=== PATIENT | female | born 1945 | race Caucasian/White ===

== ENCOUNTER 2018-06-05 13:14 | Outpatient (REF) | payer OTHER, SELFPAY ==
[2018-06-05 21:44] LABS: Hemoglobin A1C 5.7 % (4.5-6.2)
[2018-06-05 21:55] LABS: ALT 26 U/L (12-78); AST 19 U/L (15-37); Alkaline Phosphatase 67 U/L (46-116); Anion Gap 9.9 mmol/L (3-11); BUN 24 mg/dL (7-18); Bilirubin, Total 0.4 mg/dL (0.2-1.0); CO2 27.1 mmol/L (21.0-32.0); CREATININE 0.65 mg/dL (0.55-1.02); Calcium 9.6 mg/dL (8.5-10.1); Chloride 104 mmol/L (98-107); Glucose 103 mg/dL (70-100); Potassium 4.1 mmol/L (3.5-5.1); Sodium 141 mmol/L (136-145); Total Protein 7.2 g/dL (6.4-8.2)
[2018-06-09 10:25] LABS: Hepatitis C Ab w Rflx HCV PCR Negative (NEGAT)
== END 2018-06-05 13:34 ==
LOC: NCHCN 13:14
PROVIDERS: PCP Nurse Practitioner Family; Visit Provider Nurse Practitioner Family
DX: R73.01 Impaired fasting glucose (principal); E78.5 Hyperlipidemia, unspecified; N95.2 Postmenopausal atrophic vaginitis; M54.5 Low back pain; Z11.59 Encounter for screening for other viral diseases
CPT/HCPCS: 80053; 86803; 83036

== ENCOUNTER 2018-08-12 01:34 | Outpatient (CLI) | payer OTHER, SELFPAY ==
--- NOTE | 2018-08-12 13:30 | DI.RAD_ITS ---
SYMPTOMS/DIAGNOSIS: AGE-RELATED POSTMENOPAUSAL STATUS, Z78.0 DEXA SCAN: The scanogram is unremarkable. For the right forearm, a T score of -1.9 and a Z score of -0.2 indicate osteoporosis and a high fracture risk. For the left hip, a T score of 0 and a Z score of 1.6 are within the normal range. For the lumbar spine, a T score of 0.1 and a Z score of 2.2 are also within the normal range.
--- NOTE | 2018-08-12 14:20 | DI.MAMMO_ITS ---
SYMPTOMS/DIAGNOSIS: SCREENING, Z12.39 MAMMOGRAM: Mammograms were interpreted according to the usual protocol including computer analysis with CAD system, tomosynthesis and C view imaging. The breast tissue is moderately radiodense which somewhat limits the sensitivity of the study. There is no dominant mass. There are no suspicious calcifications and there has been no significant interval change when compared with prior images. SUMMARY: No evidence of malignancy, Category I, yearly screening mammography is recommended. Breast density Category C. MQSA ASSESSMENT OF FINDINGS: Negative. Category 1. Patient will receive a letter notifying them of these results. Bi-RADS category C. The breasts are heterogeneously dense, which may obscure small masses.
== END 2018-08-12 01:54 ==
PROVIDERS: PCP Nurse Practitioner Family; Visit Provider Nurse Practitioner Family
DX: M81.0 Age-related osteoporosis without current pathological fracture (principal); Z78.0 Asymptomatic menopausal state; Z12.31 Encounter for screening mammogram for malignant neoplasm of breast
CPT/HCPCS: 77063; 77067; 77080

== ENCOUNTER 2019-06-28 01:13 | Outpatient (CLI) | payer OTHER, SELFPAY ==
[2019-06-28 10:44] LABS: ALT 23 U/L (14-59); AST 18 U/L (15-37); Alkaline Phosphatase 77 U/L (46-116); Anion Gap 9.6 mmol/L (3-11); BUN 20 mg/dL (7-18); Bilirubin, Total 0.6 mg/dL (0.2-1.0); CO2 26.4 mmol/L (21.0-32.0); Chloride 102 mmol/L (98-107); Glucose 114 mg/dL (74-106); Potassium 4.5 mmol/L (3.5-5.1); Sodium 138 mmol/L (136-145)
[2019-06-28 11:32] LABS: Hemoglobin A1C 5.5 % (3.8-5.6)
== END 2019-06-28 01:33 ==
PROVIDERS: PCP Nurse Practitioner Family; Visit Provider Nurse Practitioner Family
DX: I10 Essential (primary) hypertension (principal); R73.09 Other abnormal glucose
CPT/HCPCS: 36415; 80053; 83036

== ENCOUNTER 2020-01-25 11:55 | Outpatient (REF) | payer OTHER, SELFPAY ==
[2020-01-25 22:05] LABS: Anion Gap 7.3 mmol/L (3-11); BUN 15 mg/dL (7-18); CO2 28.7 mmol/L (21.0-32.0); CREATININE 0.66 mg/dL (0.55-1.02); Calcium 9.5 mg/dL (8.5-10.1); Chloride 103 mmol/L (98-107); Glucose 103 mg/dL (74-106); Potassium 4.7 mmol/L (3.5-5.1); Sodium 139 mmol/L (136-145)
== END 2020-01-25 12:15 ==
LOC: NCHCN 11:55
PROVIDERS: PCP Nurse Practitioner Family; Visit Provider Nurse Practitioner Family
DX: I10 Essential (primary) hypertension (principal)
CPT/HCPCS: 80048

== ENCOUNTER 2020-06-21 00:59 | Outpatient (CLI) | payer OTHER, SELFPAY ==
--- NOTE | 2020-06-21 12:50 | DI.MAMMO_ITS ---
EXAM: MAMMO SCREENING CLINICAL HISTORY: SCREENING,Z12.39 TECHNIQUE: Bilateral full field digital CC and MLO mammographic images were obtained with 3D tomosyn thesis and utilizing computer aided detection (CAD). COMPARISON: Available for comparison. FINDINGS: Masses/Architectural Distortion: Area of asymmetric density in the central left breast seen on both t he CC and the MLO view. Microcalcifications: No suspicious pleomorphic-type are seen. Skin Thickening/Nipple Retraction: None. IMPRESSION: 1. Small asymmetric density in the posterior central left breast. 2. Spot compression views and a left breast ultrasound are requested for further evaluation. BI-RADS Category 0 - Assessment Incomplete: Need additional imaging evaluation Breast Density - Category B - Scattered areas of fibroglandular density Breast density category C or D implies that the patient has dense breast tissue. Dense breast tissue is very common and is not abnormal but dense breast tissue can make it harder to find cancer on a ma mmogram. Also, dense breast tissue may increase their breast cancer risk. This information about the result of the mammogram report was provided to the patient to raise their awareness. Use this report when you speak with the patient about their risks for breast cancer, which includes their family hist ory. At that time, you may recommend for more screening tests (Ultrasound or MRI) as they might be us eful based on their risk. A negative radiographic report should not delay biopsy if a dominant or clinically suspicious mass is present. Up to ten percent of cancers are not identified on mammography. A negative report may reinforce clinical impression. Adenosis and dense breasts may obscure an underlying neoplasm. False positive reports average 6 to 10%. Patient will receive a letter notifying them of these results. -- EXAM: MAMMO SCREENING CLINICAL HISTORY: SCREENING,Z12.39 TECHNIQUE: Bilateral full field digital CC and MLO mammographic images were obtained with 3D tomosyn thesis and utilizing computer aided detection (CAD). COMPARISON: Available for comparison. FINDINGS: Masses/Architectural Distortion: Area of asymmetric density in the central left breast seen on both t he CC and the MLO view. Microcalcifications: No suspicious pleomorphic-type are seen. Skin Thickening/Nipple Retraction: None.
== END 2020-06-21 01:00 ==
LOC: DI 01:00
PROVIDERS: PCP Nurse Practitioner Family; Visit Provider Nurse Practitioner Family
DX: Z12.31 Encounter for screening mammogram for malignant neoplasm of breast (principal)
CPT/HCPCS: 77063; 77067

== ENCOUNTER 2020-06-27 00:23 | Outpatient (CLI) | payer OTHER, SELFPAY ==
--- NOTE | 2020-06-27 | DI.MAMMO_ITS ---
EXAM: MG MAMMO SCREEN CALL BACK UNI CLINICAL HISTORY: F/U MAMMO, AREA OF ASYMMETRIC DENSITY CENTRAL LT BREAST. TECHNIQUE: Spot-compression CC and MLO 3D views of the left breast were performed, this pursuant of findings on recent screening mammogram of June 21, 2020 COMPARISON: Prior mammograms dating back to 2011, the most recent being June 21, 2020. FINDINGS: Additional spot compression views are less concerning for significant nodule. Left breast ultrasound performed following this mammogram today did not reveal significant focal ultr asound findings. IMPRESSION: No radiographic evidence of malignancy in the left breast. Appropriate follow-up is repeat left breast mammogram in 6 months. BI-RADS Category 3 - 6 month - Probably Benign Finding: Recommend follow-up mammography in 6 months Breast Density - Category B - Scattered areas of fibroglandular density Breast density Category C or D implies that the patient has dense breast tissue. Dense breast tissue can make it harder to find cancer on a mammogram. Dense breast tissue is also associated with an incr eased risk of breast cancer. This information about the result of the mammogram report was provided to the patient to raise their awareness. Use this report when you speak with the patient about their risks for breast cancer, which includes their family history. At that time, you may recommend additional screening tests (Ultrasoun d or MRI) as these tests may add significant information. A negative radiographic report should not delay biopsy if a dominant or clinically suspicious mass is present. Up to ten percent of cancers are not identified on mammography. A negative report may reinforce clinical impression. Adenosis and dense breasts may obscure an underlying neoplasm. False positive reports average 6 to 10%. Patient will receive a letter notifying them of these results.
== END 2020-06-27 00:24 ==
LOC: DI 00:24
PROVIDERS: PCP Nurse Practitioner Family; Visit Provider Nurse Practitioner Family
DX: R92.8 Other abnormal and inconclusive findings on diagnostic imaging of breast (principal)
CPT/HCPCS: 76642; 77063; 77067

== ENCOUNTER 2020-07-05 13:04 | Outpatient (REF) | payer OTHER, SELFPAY ==
[2020-07-05 19:56] LABS: ALT 28 U/L (14-59); AST 15 U/L (15-37); Albumin 4.1 g/dL (3.4-5.0); Alkaline Phosphatase 73 U/L (46-116); Anion Gap 7.7 mmol/L (3-11); BUN 19 mg/dL (7-18); Bilirubin, Total 0.4 mg/dL (0.2-1.0); CO2 27.3 mmol/L (21.0-32.0); CREATININE 0.7 mg/dL (0.55-1.02); Calcium 9.5 mg/dL (8.5-10.1); Chloride 105 mmol/L (98-107); Glucose 105 mg/dL (74-106); Potassium 4.4 mmol/L (3.5-5.1); Sodium 140 mmol/L (136-145); Total Protein 7.2 g/dL (6.4-8.2)
[2020-07-05 19:59] LABS: Hemoglobin A1C 5.4 % (<5.7)
[2020-07-07 04:41] LABS: Vitamin D 25 Total 37.1 ng/ml (30-100)
== END 2020-07-05 13:05 | disposition home or self-care (01) ==
LOC: NCHCN 13:04
PROVIDERS: PCP Nurse Practitioner Family; Visit Provider Nurse Practitioner Family
DX: I10 Essential (primary) hypertension (principal); M81.0 Age-related osteoporosis without current pathological fracture; E78.5 Hyperlipidemia, unspecified; R73.09 Other abnormal glucose
CPT/HCPCS: 80053; 82306; 83036

== ENCOUNTER 2020-08-01 11:53 | Outpatient (CLI) | payer OTHER, SELFPAY ==
--- NOTE | 2020-07-18 12:30 | DI.RAD_ITS ---
EXAM: XR KNEE LT 3V AP,LAT,KING CLINICAL HISTORY: BILAT KNEE PAIN, M25.561. TECHNIQUE: 2D digital imaging was performed. COMPARISON: CR XR KNEE RT 3V AP,LAT,KING from 07/18/2020 FINDINGS: BONES: No acute fracture is present. No bony destructive lesion is seen. JOINTS: There is moderate to severe narrowing of the medial femoral tibial joint space. There is spu rring from the medial femoral condyle and medial tibial plateau as well as sclerosis. There is mild varus angulation at the knee. There is mild spurring at the patellofemoral joint. No joint effusion is seen. SOFT TISSUE: Normal. IMPRESSION: Moderate to severe degenerative changes of the medial femoral tibial joint. Mild patellofemoral dege nerative changes. DATA REPOSITORY: RADIATION DOSE DELIVERED:
--- NOTE | 2020-07-18 12:40 | DI.RAD_ITS ---
EXAM: XR KNEE RT 3V AP,LAT,KING CLINICAL HISTORY: BILAT KNEE PAIN, M25.561. TECHNIQUE: 2D digital imaging was performed. COMPARISON: No exams were available for comparison FINDINGS: BONES: No acute fracture is present. No bony destructive lesion is seen. JOINTS: There is severe narrowing of the medial femoral tibial joint. There is spurring from the med ial femoral condyle and medial tibial plateau. There is varus angulation. There is minimal spurring at the articular aspect of the patella. No joint effusion is seen. SOFT TISSUE: Normal. IMPRESSION: Severe degenerative changes of the medial femoral tibial joint. Mild degenerative changes of the pat ellofemoral joint. DATA REPOSITORY: RADIATION DOSE DELIVERED:
== END 2020-08-01 12:13 ==
PROVIDERS: PCP Nurse Practitioner Family; Visit Provider Nurse Practitioner Family
DX: M17.0 Bilateral primary osteoarthritis of knee (principal)
CPT/HCPCS: 73562

== ENCOUNTER → 2020-08-26 08:27 | Outpatient (BNVA) | payer OTHER, SELFPAY | PROVIDERS: PCP Nurse Practitioner Family; Referring Provider Nurse Practitioner Family; Visit Provider Student in an Organized Health Care Education/Training Program | DX: M17.12 Unilateral primary osteoarthritis, left knee (principal); M17.11 Unilateral primary osteoarthritis, right knee | CPT/HCPCS: 99203 ==

== ENCOUNTER 2021-02-13 17:46 | Outpatient (REF) | payer OTHER, SELFPAY ==
[2021-02-15 12:59] LABS: COVID-19 RT-PCR UVMMC Result Negative (Negative)
== END 2021-02-13 17:47 | disposition home or self-care (01) ==
LOC: NCHCN 17:46
PROVIDERS: PCP Nurse Practitioner Family; Visit Provider Nurse Practitioner Family
DX: Z20.822 Contact with and (suspected) exposure to COVID-19 (principal); J11.1 Influenza due to unidentified influenza virus with other respiratory manifestations
CPT/HCPCS: U0003

== ENCOUNTER 2021-02-14 01:03 | Outpatient (CLI) | payer OTHER, SELFPAY ==
--- NOTE | 2021-02-14 | DI.US_ITS ---
Exam(s) MG MAMMO DIAGNOSTIC UNI US BREAST LT LIMITED EXAM: MG MAMMO DIAGNOSTIC UNI and U/S breast LT limited CLINICAL HISTORY: DIAGNOSTIC, 6 MO F/U, F/U ABNL MAMMO. TECHNIQUE: Craniocaudal and mediolateral oblique Full Field Digital Mammography views of the left br east with Computer Aided Diagnosis followed by Tomosynthesis and left breast ultrasound. COMPARISON: Priors available for comparison. FINDINGS: Mammography/Tomosynthesis: Masses/Architectural Distortion: The asymmetric breast tissue in the lower central left breast is unc hanged. Microcalcifictions: No suspicious pleomorphic-type are seen. Skin Thickening/Nipple Retraction: None. Left breast US: The lower inner and lower outer quadrants of the left breast were evaluated sonograph ically. Echotexture: Normal appearance of the glandular tissue. Shadowing: No suspicious foci. Cyst: None. Solid lesions: None seen. Ductal dilation: None. IMPRESSION: 1. No evidence of malignancy is noted. 2. A six-month follow-up left mammogram and ultrasound is recommended for re-evaluation. 3. Findings were discussed with the patient on the date of the examination. BI-RADS Category 3 - 6 month - Probably Benign Finding: Recommend follow-up imaging in 6 months Breast Density - Category B - Scattered areas of fibroglandular density Breast density category C or D implies that the patient has dense breast tissue. Dense breast tissue is very common and is not abnormal but dense breast tissue can make it harder to find cancer on a ma mmogram. Also, dense breast tissue may increase their breast cancer risk. This information about the result of the mammogram report was provided to the patient to raise their awareness. Use this report when you speak with the patient about their risks for breast cancer, which includes their family hist ory. At that time, you may recommend for more screening tests (Ultrasound or MRI) as they might be us eful based on their risk. A negative radiographic report should not delay biopsy if a dominant or clinically suspicious mass is present. Up to ten percent of cancers are not identified on mammography. A negative report may reinforce clinical impression. Adenosis and dense breasts may obscure an underlying neoplasm. False positive reports average 6 to 10%. Patient will receive a letter notifying them of these results.
== END 2021-02-14 01:23 ==
PROVIDERS: PCP Nurse Practitioner Family; Visit Provider Nurse Practitioner Family
DX: R92.8 Other abnormal and inconclusive findings on diagnostic imaging of breast (principal)
CPT/HCPCS: 76642; 77061; 77065; G0279

== ENCOUNTER → 2021-07-21 09:24 | Outpatient (BNVA) | payer MEDICARE, SELFPAY | PROVIDERS: PCP Nurse Practitioner Family; Referring Provider Nurse Practitioner Family | DX: M17.11 Unilateral primary osteoarthritis, right knee (principal) | CPT/HCPCS: 20610; J1040 ==

== ENCOUNTER 2021-08-18 00:26 | Outpatient (CLI) | payer MEDICARE, SELFPAY ==
--- NOTE | 2021-08-18 | DI.US_ITS ---
Exam(s) US BREAST LT COMPLETE EXAM: US BREAST LT COMPLETE CLINICAL HISTORY: F/U ABNL FINDINGS ON MAMMO, 6 MO F/U LT BREAST, R92.8. TECHNIQUE: Complete ultrasound of the LEFT breast was performed including all 4 quadrants, the retro areolar region, and the ipsilateral axilla. COMPARISON: Prior mammograms were reviewed. Prior limited ultrasound examinations were reviewed. FINDINGS: There is no evidence of solid or significant cystic lesions in all 4 quadrants of the left breast. No significant ultrasound findings in the retroareolar region. Ultrasound the left axilla revealed no significant adenopathy. IMPRESSION: Negative complete left breast ultrasound. Appropriate follow-up is to keep this patient yearly mammogram schedule, with earlier imaging if a se lf detected breast changes noted.. BI-RADS Category 2 - Benign Findings Breast Density - Category B - Scattered areas of fibroglandular density Breast density Category C or D implies that the patient has dense breast tissue. Dense breast tissue can make it harder to find cancer on a mammogram. Dense breast tissue is also associated with an incr eased risk of breast cancer. This information about the result of the mammogram report was provided to the patient to raise their awareness. Use this report when you speak with the patient about their risks for breast cancer, which includes their family history. At that time, you may recommend additional screening tests (Ultrasoun d or MRI) as these tests may add significant information. A negative radiographic report should not delay biopsy if a dominant or clinically suspicious mass is present. Up to ten percent of cancers are not identified on mammography. A negative report may reinforce clinical impression. Adenosis and dense breasts may obscure an underlying neoplasm. False positive reports average 6 to 10%. Patient will receive a letter notifying them of these results.
--- NOTE | 2021-08-18 | DI.MAMMO_ITS ---
Exam(s) MAMMO DIAGNOSTIC BI EXAM: MAMMO DIAGNOSTIC BI CLINICAL HISTORY: DIAGNOSTIC, 6 MO F/U, F/U TO ABNL MAMMO LT, DUE FOR BILATERAL, R92.8. TECHNIQUE: Unilateral spot mammographic images were obtained with 3D tomosynthesis technique and uti lizing computer aided detection (CAD). COMPARISON: Prior mammograms were reviewed, the most recent being February 2021. Prior ultrasound was also reviewed FINDINGS: There has been no significant change in the appearance and distribution of the fibroglandular tissue. There are no new spiculated masses. Scattered benign microcalcifications are again noted. A small m icrocalcification in the central left breast is noted which is slightly increased prior studies but p resently benign appearance. No new significant architectural distortion or skin thickening-traction. IMPRESSION: Benign findings. No radiographic evidence of malignancy. This patient also underwent left breast ultrasound today. Please see that separate report The patient was informed of the findings and follow-up recommendations prior to leaving the [facility] t today. BI-RADS Category 2 - Benign Findings Breast Density - Category B - Scattered areas of fibroglandular density Breast density Category C or D implies that the patient has dense breast tissue. Dense breast tissue can make it harder to find cancer on a mammogram. Dense breast tissue is also associated with an incr eased risk of breast cancer. This information about the result of the mammogram report was provided to the patient to raise their awareness. Use this report when you speak with the patient about their risks for breast cancer, which includes their family history. At that time, you may recommend additional screening tests (Ultrasoun d or MRI) as these tests may add significant information. A negative radiographic report should not delay biopsy if a dominant or clinically suspicious mass is present. Up to ten percent of cancers are not identified on mammography. A negative report may reinforce clinical impression. Adenosis and dense breasts may obscure an underlying neoplasm. False positive reports average 6 to 10%. Patient will receive a letter notifying them of these results.
== END 2021-08-18 00:46 ==
PROVIDERS: PCP Nurse Practitioner Family; Visit Provider Nurse Practitioner Family
DX: R92.8 Other abnormal and inconclusive findings on diagnostic imaging of breast (principal); N60.82 Other benign mammary dysplasias of left breast
CPT/HCPCS: 76642; 77062; 77066; G0279

== ENCOUNTER → 2021-10-05 02:12 | Outpatient (CLI) | payer MEDICARE, SELFPAY ==
--- NOTE | 2021-10-05 14:30 | DI.DEXA_ITS ---
Exam(s) XR DEXA BONE DENSITY W/WO GORDY EXAM: XR DEXA BONE DENSITY W/WO GORDY CLINICAL HISTORY: ASYMPTOMATIC POSTMENOPAUSAL STATUS, Z78.0 TECHNIQUE: COMPARISON: Comparison is 08/12/2018. FINDINGS: Lateral Spine Image: Unremarkable. No compression deformities identified. Left hip: Total T-Score: -0.2. This compares to 0.0 on the prior examination. This is a loss of 2.6 percent in the bone mineral density. Total Z-Score: 1.5 T- and Z-scores: Within normal limits. Lumbar Spine: Total T-Score: 0.3. This compares to 0.1 on the prior examination. This is a 2 percent increase in t he bone mineral density. Total Z-Score: 2.6 T- and Z-scores: Within normal limits. IMPRESSION: No evidence of osteoporosis.
== END ==
PROVIDERS: PCP Nurse Practitioner Family; Visit Provider Nurse Practitioner Family
DX: Z13.820 Encounter for screening for osteoporosis (principal); Z78.0 Asymptomatic menopausal state
CPT/HCPCS: 77080

== ENCOUNTER 2021-10-10 16:07 | Outpatient (REF) | payer MEDICARE, SELFPAY ==
[2021-10-10 15:16] LABS: CREATININE 0.7 mg/dL (0.55-1.02)
== END 2021-10-10 16:08 | disposition home or self-care (01) ==
LOC: NCHCN 16:07
PROVIDERS: PCP Nurse Practitioner Family; Visit Provider Internal Medicine
DX: Z01.812 Encounter for preprocedural laboratory examination (principal)
CPT/HCPCS: 82565

== ENCOUNTER 2022-01-29 10:34 | Outpatient (CLI) | payer MEDICARE, SELFPAY ==
--- NOTE | 2022-01-29 10:15 | DI.RAD_ITS ---
Exam(s) XR KNEE RT 1V XR STANDING ALIGNMENT EXAM: XR STANDING ALIGNMENT CLINICAL HISTORY: DJD R KNEE. TECHNIQUE: 2D digital imaging was performed. Standing AP views were performed from the pelvis throu gh the ankles. Weight-bearing lateral view of the right knee with template ball. COMPARISON: CR XR KNEE LT 3V AP,LAT,KING from 07/18/2020 CR XR KNEE RT 3V AP,LAT,KING from 07/18/2020 CR XR KNEE RT 1V from 01/29/2022 FINDINGS: BONES: No acute fracture is present. No bony destructive lesion is seen. JOINTS: Knees: There is na rrowing of the medial femoral tibial joint spaces of both knees, right greater left. There is mild va errol angulation. The ankle and hip joints are unremarkable. SOFT TISSUE: Normal. IMPRESSION: Degenerative changes of the medial femoral tibial joint spaces of both knees, right greater than left . No significant leg length discrepancy. DATA REPOSITORY: RADIATION DOSE DELIVERED:
== END 2022-01-29 10:35 | disposition home or self-care (01) ==
LOC: DIORS 10:34
PROVIDERS: PCP Nurse Practitioner Family; Referring Provider Nurse Practitioner Family; Visit Provider Student in an Organized Health Care Education/Training Program
DX: M17.11 Unilateral primary osteoarthritis, right knee (principal)
CPT/HCPCS: 99214; 73560; 77073

== ENCOUNTER 2022-03-26 04:04 | Outpatient (CLI) | payer MEDICARE, SELFPAY ==
[2022-03-26 11:00] LABS: HCT 37.7 % (36.0-46.0); HGB 13.1 g/dL (11.2-15.7); MCH 32.3 pg (27.0-33.0); MCHC 34.7 % (32.0-36.0); MCV 93 fL (80-95); MPV 9.1 fL (8.0-11.0); Platelet Count 235 10^3/uL (130-400); RBC 4.05 10^6/uL (3.93-5.22); RDW 12.4 % (11.7-14.6); RDW-SD 42.2 fL; WBC 8.47 10^3/uL (4.4-10.8)
[2022-03-26 11:14] LABS: BUN 17 mg/dL (7-18); CREATININE 0.7 mg/dL (0.55-1.02); Calcium 9.1 mg/dL (8.5-10.1); Chloride 102 mmol/L (98-107); Glucose 102 mg/dL (74-106); Potassium 4.1 mmol/L (3.5-5.1); Sodium 138 mmol/L (136-145)
== END 2022-03-26 04:05 | disposition home or self-care (01) ==
LOC: LBO 04:04
PROVIDERS: PCP Nurse Practitioner Family; Visit Provider Student in an Organized Health Care Education/Training Program
DX: M17.11 Unilateral primary osteoarthritis, right knee (principal); Z01.818 Encounter for other preprocedural examination
CPT/HCPCS: 36415; 80048; 85027

== ENCOUNTER 2022-04-04 07:31 | Day surgery (SDC) | payer MEDICARE, SELFPAY ==
[2022-04-04] VITALS (10 sets, daily range): BP systolic 112–146; BP diastolic 45–99; PULSE 61–77; RESP 13–16; TEMP 35.9–36.4; O2SAT 95–99; BMI 28.5
--- NOTE | 2022-04-04 07:29 | W.PM.DS.N ---
Date of service: 04/04/22 Time of Service: 13:42 DS: Diagnosis Discharge Diagnosis (1) Degenerative joint disease of right knee: Status: Acute Discharge Plan Disposition Patient Disposition: HOME Condition: Good Discharge Details Reason For Visit: Right knee DJD Attending Provider: Herman Jimenez Primary Care Provider: Franny Herzog Home Meds and New Rx's Prescriptions: New acetaminophen 500 mg tablet 1,000 mg PO Q8H PRN Qty: 90 0RF Rx Instructions: Take two tablets up to every 8 hours as needed for pain aspirin 81 mg tablet,delayed release (DR/EC) 81 mg PO BID 30 Days Qty: 60 0RF celecoxib [Celebrex] 200 mg capsule 200 mg PO BID Qty: 30 0RF docusate sodium [Colace] 100 mg capsule 100 mg PO BID Qty: 30 0RF dexamethasone 4 mg tablet 4 mg PO DAILY Qty: 2 0RF Rx Instructions: Take one tablet once daily for two days gabapentin 300 mg capsule 300 mg PO QHS Qty: 14 0RF Rx Instructions: Take one tablet at bedtime oxycodone 5 mg tablet 5 mg PO Q4H PRN (Reason: severe post-operative pain) Qty: 18 0RF Rx Instructions: Take one tablet up to every 4 hours as needed for severe pain Continued lisinopril 10 mg tablet 10 mg PO DAILY fluticasone propion-salmeterol [Advair Diskus] 1 EACH blister with device 1 ea Inhalation PRN simvastatin 40 MG tablet 40 mg PO DAILY omeprazole 20 MG capsule,delayed release(DR/EC) 20 mg PO DAILY PRN Vitamin D3 (calcium cit-phos) 1 EACH tablet 1 ea PO DAILY Lumigan 5 ML drops 5 ml Ophthalmic HS [id number] 3 tab PO DAILY Fish Oil 1 cap PO DAILY Vitamin B100 1 tab PO DAILY brinzolamide [Azopt] 5 ML drops,suspension 1 drp Ophthalmic BID clobetasol 60 GM ointment 60 gm Topical HS twice weekly PRNQty: 60 estradiol [Vagifem] 10 MCG tablet 10 mcg VG HS twice weekly Qty: 8 Rx Instructions: 1 tab PV HS twice weekly Provotex Inhaler 1 puff inhalation PRN Discontinued ibuprofen 400 MG tablet 400 mg PO BID PRN aspirin [Aspirin Low-Strength] 81 MG tablet,chewable 81 mg PO DAILY meloxicam 15 mg tablet 15 mg PO DAILY PRN Rx Instructions: Take one tablet daily for inflammation and pain Discharge Instructions Additional Instructions: Total Knee Discharge Instructions Activity: The most important activity is to walk and to work on gentle motion (both flexion and extension). You should try to take short walks a few times a day. It is important that when resting you work on keeping the knee straight. Avoid putting a pillow behind the knee as this will encourage flexion. Work on range of motion exercises as provided by Physical Therapy. - Start outpatient physical therapy within 2 weeks. - You should wear the BHAVIK hose on both legs for 2 weeks. You may remove these at night. You may also use any compression sock in place of the BHAVIK hose. - Utilize [employer] to review exercises, see videos on exercises and obtain basic information pertaining to your surgery and your recovery. Dressing: Remove the Fuad wrap by 2 days after your surgery and put on the BHAVIK stocking given to you from the hospital. Keep the surgical dressing (underneath the FUAD wrap) in place for at least one week. After the first week it may be removed and replaced with light gauze and tape or nothing. The wound and dressing may get wet after 3 days but avoid soaking the dressing or otherwise it will need to be changed. Many people prefer covering the dressing with cling wrap (saran wrap) to minimize it from getting soaked. If it gets wet, just pat dry. If it starts to peel off then it will need to be changed. Medications: - You should take Tylenol and anti-inflammatory Celebrex as your primary pain control medications. If the Celebrex is too expensive or not covered, please call the office for another alternative (Advil/Ibuprofen or Naproxen/Aleve) - You have been prescribed a stronger pain medication Oxycodone for breakthrough pain, take as needed as prescribed. - You take a stomach acid reduction agent Omeprazole at baseline - continue with this medication to help reduce stomach acid and reflux. - You have been prescribed Gabapentin to take at night for restlessness and nerve pain. - You will be taking Aspirin 81mg twice a day for DVT prevention unless instructed otherwise. - You have also been prescribed Decadron to take to control post-operative nausea and pain. You will start this tomorrow. - If you have constipation you should take Colace (which has been prescribed) or Miralax (which is available [id number]). It takes most people 3-4 days to have a bowel movement. Follow-up: 2 weeks If you have any acute concerns or questions, please do not hesitate to contact the office at [phone]. You may contact Dr. Jimenez with any questions after hours through the hospital at [phone] or on his cell phone at [phone]. Stand Alone Forms: Anesthesia Discharge Inst., [place].Nerve Block Instructions, Matthew Gomes ([facility]) Referrals: Herman Jimenez MD [ [facility] STAFF PHYSICIAN] - Equipment/Supplies: Walker Activity:: Elevate Remove Dressings/Wound Care:: Do Not Remove Shower/Bathe:: Cover Activity:: Activity as Tolerated Equipment/Supplies:: Walker Diet:: As Tolerated DS: Summary Time Spent with Patient providing and/or coordinating discharge services: Less than 30 minutes Status at Discharge Functional status at discharge: uses cane/walker Overall status at discharge: patient is back to baseline Mental Status: mental status grossly normal Speech and Movement: speech and movement normal Mood: congruent mood Affect: normal affect Exam Psych Mental Status: mental status grossly normal Speech and Movement: speech and movement normal Mood: congruent mood Affect: normal affect DS: Data Vitals/I&O Vitals and I&O: Intake & Output 04/03/22 04/03/22 04/04/22 11:59 23:59 11:59 Weight 150 lb 0.04 oz PFSH All Active Problems Left knee DJD (Acute) Degenerative joint disease of right knee (Acute) Polyp at cervical os (Acute 03/28/15) Medical History Asthma Decreased hearing Glaucoma High cholesterol Hypertension Impaired fasting glucose Lichen sclerosus et atrophicus (08/13/13) Low back pain Memory impairment Osteoarthritis Osteoporosis Post-nasal drip Urinary frequency Surgical History History of carpal tunnel release of both wrists approx 2006 History of colonoscopy Social History Smoking/Tobacco Use Status: Never Smoking risk assessment performed?: Yes Alcohol Intake: current Alcohol Intake frequency: 0-2 drinks per day Alcohol type: wine and hard liquor Drug use: Never Substance use type: does not use Do you feel safe at home: Yes Do you feel safe in your relationship?: Yes
[2022-04-04] MEDS: Gabapentin 300 MG CAP PO (08:04)
[2022-04-04] MEDS: Celecoxib 200 MG CAP 400 MG PO (08:04)
[2022-04-04] MEDS: Acetaminophen 500 MG TAB 1000 MG PO (08:04)
[2022-04-04] MEDS: Lactated Ringers 1,000 ML 80 ML IV (08:08)
--- NOTE | 2022-04-04 08:12 | W.ANESPRE ---
General Info Date of Service Date Performed: 04/04/22 Height: 5 ft 1 in Weight: 68.5 kg Body Mass Index (BMI): 28.5 Surgical Procedure: Operation Date: 04/04/22 09:55 Proposed Procedure Side Surgeon p Knee Total Arthroplasty Cementless Right Herman Jimenez MD Meds Allergies and Home Medications Allergies Allergy/AdvReac Type Severity Reaction Status Date / Time brimonidine tartrate Allergy Mild Eye Unverified 04/04/22 07:37 [From Alphagan P] Irritation/GI Upset Home Medication Medication Instructions Recorded [id number] 3 tab PO DAILY 04/15/13 Fish Oil 1 cap PO DAILY 04/15/13 Vitamin B100 1 tab PO DAILY 04/15/13 bimatoprost 0.01 % eye drops 5 ml ophthalmic (eye) HS 04/15/13 (Lumigan) calcium cmb no.1-vit [id number]-B12 1 ea PO DAILY 04/15/13 120 mg-1,000 unit-10 mg tablet (Vitamin D3 (with calcium cit-phos)) fluticasone 250 mcg-salmeterol 50 1 ea inhalation PRN 04/15/13 mcg/dose blistr powdr for inhalation (Advair Diskus) omeprazole 20 mg capsule,delayed 20 mg PO DAILY PRN 04/15/13 release simvastatin 40 mg tablet 40 mg PO DAILY 04/15/13 brinzolamide 1 % eye 1 drp ophthalmic (eye) BID 08/13/13 drops,suspension (Azopt) clobetasol 0.05 % topical ointment 60 gm topical HS twice weekly PRN 06/29/14 #60 grams estradiol 10 mcg vaginal tablet 10 mcg vaginal HS twice weekly #8 06/29/14 (Vagifem) tabs Provotex Inhaler 1 puff inhalation PRN 03/28/15 lisinopril 10 mg tablet 10 mg PO DAILY 07/21/21 acetaminophen 500 mg tablet 1,000 mg PO Q8H PRN pain #90 tabs 04/04/22 aspirin 81 mg tablet,delayed 81 mg PO BID 30 days #60 tabs 04/04/22 release celecoxib 200 mg capsule (Celebrex) 200 mg PO BID #30 caps 04/04/22 dexamethasone 4 mg tablet 4 mg PO DAILY #2 tabs 04/04/22 docusate sodium 100 mg capsule 100 mg PO BID #30 caps 04/04/22 (Colace) gabapentin 300 mg capsule 300 mg PO QHS #14 caps 04/04/22 oxycodone 5 mg tablet 5 mg PO Q4H PRN severe 04/04/22 post-operative pain #18 tabs Current Visit Medications: Current Medications Generic Name Dose Route Start Last Admin Trade Name Karanq PRN Reason Stop Dose Admin Acetaminophen 1,000 mg 04/04/22 06:00 04/04/22 08:04 Acetaminophen 500 Mg Tab PO 04/04/22 16:00 1,000 mg PREOP OSWALD Administration Acetaminophen 1,000 mg 04/04/22 08:30 Acetaminophen 500 Mg Tab PO TID OSWALD Aspirin 81 mg 04/04/22 08:30 Aspirin E.C. 81 Mg Tabec PO BID OSWALD Celecoxib 400 mg 04/04/22 06:00 04/04/22 08:04 Celecoxib 200 Mg Cap PO 04/04/22 16:00 400 mg PREOP OSWALD Administration Celecoxib 200 mg 04/04/22 08:30 Celecoxib 200 Mg Cap PO BID OSWALD Dexamethasone 4 mg 04/04/22 08:30 Dexamethasone 4 Mg Tab PO 04/05/22 08:31 DAILY OSWALD Docusate Sodium 100 mg 04/04/22 07:27 Docusate Sodium 100 Mg Cap PO BID PRN PRN Constipation Gabapentin 300 mg 04/04/22 06:00 04/04/22 08:04 Gabapentin 300 Mg Cap PO 04/04/22 16:00 300 mg PREOP OSWALD Administration Gabapentin 300 mg 04/04/22 22:00 Gabapentin 300 Mg Cap PO HS OSWALD Hydromorphone HCl 0.5 mg 04/04/22 07:27 Hydromorphone 2 Mg/Ml Syr IVP Q2H PRN PRN Tranexamic Acid 1,000 mg/ 60 mls @ 360 mls/hr 04/04/22 06:00 Sodium Chloride IVPB 04/04/22 16:00 PREOP OSWALD Ringer's Solution 1,000 mls @ 80 mls/hr 04/04/22 06:00 04/04/22 08:08 IV 05/03/22 23:59 80 mls/hr INFUSION OSWALD Administration Cefazolin Sodium/Dextrose 2 gm in 50 mls @ 100 mls/hr 04/04/22 06:00 Ancef Duplex IVPB 04/04/22 16:00 PREOP OSWALD Cefazolin Sodium/Dextrose 1 gm in 50 mls @ 100 mls/hr 04/04/22 08:00 Ancef Duplex IVPB 04/05/22 00:29 Q8H OSWALD IV Miscellaneous Supplies 1 each 04/04/22 06:00 Iv Access IV 05/03/22 23:59 DIRECTED OSWALD Ondansetron HCl 4 mg 04/04/22 07:27 Ondansetron 4 Mg/2 Ml Vial IVP Q6H PRN PRN Nausea Oxycodone HCl 0 mg 04/04/22 07:27 Oxycodone 5 Mg Tab PO Q3H PRN PRN Pain Pantoprazole Sodium 40 mg 04/04/22 07:30 Pantoprazole 40 Mg Tabcr PO DAILY@0730 OSWALD Polyethylene Glycol 17 gm 04/04/22 07:27 Polyethylene Glycol 3350 17 Gm Packet PO BID PRN PRN Constipation Sodium Chloride 0 ml 04/04/22 06:00 Normal Saline Flush 10 Ml Syr IV 05/03/22 23:59 PRN PRN Sodium Chloride 0 ml 04/04/22 06:00 Normal Saline 10 Ml Vial IJ 05/03/22 23:59 DIRECTED PRN Sterile Water 0 ml 04/04/22 06:00 Water,Injection,Sterile 10 Ml Vial IJ 05/03/22 23:59 DIRECTED PRN PFSH Active Problems Active Problems: Problem Status Onset Code Left knee DJD M17.12 Degenerative joint disease of right knee M17.11 Polyp at cervical os 03/28/15 N84.1 Medical History Medical History Asthma Decreased hearing Glaucoma High cholesterol Hypertension Impaired fasting glucose Lichen sclerosus et atrophicus (08/13/13) Low back pain Memory impairment Osteoarthritis Osteoporosis Post-nasal drip Urinary frequency Surgical History Surgical History History of carpal tunnel release of both wrists approx 2006 History of colonoscopy Tobacco Smoking/Tobacco Use Status: Never Alcohol Alcohol Intake: current Alcohol intake frequency: 0-2 drinks per day Alcohol type: wine and hard liquor Substance Use Substance use: Never Substance use type: does not use Vital Signs and Lab Results Vital Signs Most Recent Vital Signs in EMR: Most Recent Vital Signs Temp Pulse Resp BP Pulse Ox 35.9 C L 76 16 143/80 H 97 04/04/22 07:35 04/04/22 07:35 04/04/22 07:35 04/04/22 07:35 04/04/22 07:35 Lab Results Blood Type / Crossmatch: No Data to Display Complete Blood Count: White Blood Count 8.47 10^3/uL (4.4-10.8) 03/26/22 10:45 Red Blood Count 4.05 10^6/uL (3.93-5.22) 03/26/22 10:45 Hemoglobin 13.1 g/dL (11.2-15.7) 03/26/22 10:45 Hematocrit 37.7 % (36.0-46.0) 03/26/22 10:45 Platelet Count 235 10^3/uL (130-400) 03/26/22 10:45 Complete Metabolic Panel: Sodium 138 mmol/L (136-145) 03/26/22 10:45 Potassium 4.1 mmol/L (3.5-5.1) 03/26/22 10:45 Chloride 102 mmol/L (98-107) 03/26/22 10:45 Carbon Dioxide 29.0 mmol/L (21.0-32.0) 03/26/22 10:45 BUN 17 mg/dL (7-18) 03/26/22 10:45 Creatinine 0.7 mg/dL (0.55-1.02) 03/26/22 10:45 Est GFR (CKD-EPI 2020) 90.70 (mL/min/1.73m2) 03/26/22 10:45 Calcium 9.1 mg/dL (8.5-10.1) 03/26/22 10:45 Glucose 102 mg/dL (74-106) 03/26/22 10:45 Liver Function Panel: No Data to Display Coagulation Panel: No Data to Display Cardiac Panel: No Data to Display Arterial Blood Gas: No Data to Display Venous Blood Gas: No Data to Display Pancreas Panel: No Data to Display Thyroid Panel: No Data to Display Infectious Disease: No Data to Display Blood Cultures: No Data to Display Toxicology Panel: No Data to Display Anesthesia Assessment and Plan Anesthesia History Personal History: No History of Anesthesia Complications Family History: No Family History of Anesthesia Complications Exercise Tolerance Exercise Tolerance: Metabolic Equivalents>4 Pertinent Negatives Pertinent Negatives: No Symptoms of GERD Cardiac & Pulmonary Exam Cardiac Exam: Normal S1/S2 Heart Sounds Pulmonary Exam: Clear Bilateral Breath Sounds Implantable Cardiac Device Does patient have a Pacemaker or an ICD?: No Airway Exam Known Difficult Airway: No Mallampati Class: 1 Mouth Opening: Normal (> 3cm) Thyromental Distance: Less than 3 cm Neck Range of Motion: Full ROM Neck Circumference: Normal Teeth Condition: Normal Dentition ASA Classification ASA Score: ASA 2 Emergency Case?: No NPO Status NPO Status: NPO Clears >2 hours, Solids >8 hours Anesthesia Plan Resuscitation Status: Full Code Anesthesia Technique: Spinal Anesthesia Airway Planned: Natural Airway Pain Management: Surgeon and patient request nerve block Monitors Used: Standard Monitors
[2022-04-04] MEDS: ceFAZolin 2 GM/50 ML BAG IVPB (09:08)
--- NOTE | 2022-04-04 09:43 | W.ANESNERVE ---
Nerve Block Single Injection Procedure Date and Time Date Performed: 04/04/22 Procedure Start: 08:45 Location Where Procedure Performed Procedure Location: Day Surgery Unit (210) Reason Performed: Postoperative Analgesia Requesting Provider: Herman Jimenez Timeout Performed Timeout Performed: Yes Monitoring Used ECG, Blood Pressure and SpO2 Sterility Sterility: Hand Hygiene, Surgical Cap, Surgical Mask, Sterile Gloves, Eye Protection and Chlorhexidine Sedation Given During Procedure Sedation Given (Indicate Dose Given): No Sedation given Patient Mental Status Patient Mental Status: Awake Nerve Block 1st Nerve Block: Laterality: Right Block Type: Adductor Canal Needle / Catheter Used: 100mm SonoPlex II Local Anesthetic Bolus (Indicate Dose Given): Lidocaine used for local infiltration of skin, Injected in 3-5ml increments after negative blood aspiration and Bupivacaine 0.25% Dose:: 15 Additives (Indicate Dose Given): None Ultrasound: Sterile probe cover and gel used Ultrasound Image Saved?: Yes Nerve Stimulator: Not Used Paresthesia: None Post Procedure Pain score (0-10): 0 Procedure Tolerated: No Complications and Patient tolerated well Procedure Outcome: Successful Performed By: Mukund Lorenzo
[2022-04-04] MEDS: oxyCODONE 5 MG TAB PO (12:07)
--- NOTE | 2022-04-04 12:52 | IN_ITS ---
Date of service: 04/04/22 Time of Service: 12:52 PT Notes Visit Reasons: Right knee DJD Physical Therapy Day Surgery Initial Evaluation Date: 04/04/2022 Referring Doctor: EJ More PT Orders: PT CONSULT: S/P Ortho surgery Precautions: WBAT on right LE with AD. Patient Profile/Admitting Diagnosis: Tg is a 76-year-old female with degenerative joint disease of the right knee and is status post right total knee arthroplasty on postoperative day 0. PMHx: Degenerative joint disease of right knee Left knee DJD Social History/Home Situation: Lives with in a private home with 2 steps to enter with a rail on one side. Independent with all aspects of ADLs prior to surgery. Equipment Owned/DME: [facility] Subjective: Agreeable to PT consult. Reports 3-4 pain in the right knee with movement. Reported mild lightheadedness percent sitting up at edge of bed, noted with continued mobility performance. Objective: General Observation: Nurse Mayela and nurse supervisor lamp shades Neris providing assistance with toileting when PT arrived. ARPIT wraps to right LE. TEDS on left leg. Mental Status: Alert and oriented x4 Pain: 3-08/2009 pain in the right knee with weightbearing and movement ROM: Right Lower Extremity: Hip flexion WFL. Hip abduction WFL. Knee flexion 10 degrees to 100 degrees. Knee extension -10 degrees. Ankle dorsiflexion WFL. Ankle plantarflexion WFL. Left Lower Extremity: Hip flexion WFL. Hip abduction WFL. Knee flexion WFL. Ankle dorsiflexion WFL. Ankle plantarflexion WFL. Strength: Right Lower Extremity: Hip flexors 4/5. Hip abductors 5/5. Knee flexors 3-/5. Knee extensors 3-/5. Ankle dorsiflexors 4/5. Ankle plantarflexors 5/5. Left Lower Extremity:Hip flexors 5/5. Hip abductors 5/5. Knee flexors 5/5. Knee extensors 5/5. Ankle dorsiflexors 5/5. Ankle plantarflexors 5/5. Sensation: Intact as to pain and light pressure in bilateral lower extremities. Bed Mobility/Transfers: Supine to sit standby assist Sit to stand contact-guard assist Stand to sit standby assist Bed to chair standby assist Gait: Tolerate level surface ambulation of 15 feet + 100 feet + 75 feet using front- wheeled walker with step-to gait pattern requiring only standby assist. Lightheadedness resolved later in the walk. THERA EX: SLR x 10 Glutes sets x 10 Quads sets x 10 heel slides x 10 Ankle PF/DF x 10 Seated marches x 10 LAQ x 10 Balance: Static Sitting: Normal Dynamic Sitting: Normal Static Standing: Fair Dynamic Standing: Fair Special Tests: Mobility Limitations Standardized Measure [facility] 6 clicks Basic Mobility Inpatient Short Form: Raw Score: 23 CMS Score: 11% deficit Informed Consent/Education: Patient instructed in purpose of PT consult. Packet containing TKA exercise protocol has been given to patient. Education and training on initial set of exercises that can be done at home have been completed with patient and . Assessment: Patient requires the use of FWW for all mobility ADl performance to maximie independence and reduce fall risk. Patient presents with clinical signs and symptoms consistent with current/admitting diagnoses that have resulted to mobility limitations, gait instability, generalized weakness, and impairment of motor control as demonstrated by the following impairment level findings: 1. Decreased strength to l right knee major muscle groups 2. Impaired standing balance 3. Limitation of joint range of motion in right knee Impairments are contributing to the following functional limitations: 1. Inability to safely ambulate without assistive device 2. Increase completion time for mobility ADL performance 3. Increased fall risk Patient is assessed as a 82327 moderate complexity based on the following: History: 76-year-old female with impairment level findings, functional limitations, and past medical history as indicated above Examination: Demonstrable impairment in strength, balance, and mobility level with underlying impairments and functional limitations as documented above Presentation: Evolving Decision Makin moderate complexity Goals: N/A. PT evaluation and 1-2 treatment sessions only for functional mobility training using recommended AD and for HEP instruction. Plan of Care/Treatment Plan: N/A. PT evaluation and 1-2 treatment session only for functional mobility training using recommended AD and for HEP instruction. DISCHARGE RECOMMENDATIONS: [] Home with no services [] [] Home with services [specify] [X] Home with outpatient PT. Home when medically cleared by orthopedic surgeon. Will benefit from outpatient PT services in order to optimize functional mobility outcomes and facilitate return to independent community ambulation without an assistive device. [] SNF for continued rehabilitation [] [] Cloth Laminating Supervisor Care [] [] SNF versus LTC based on ability to participate and progress [] TREATMENT CODE/TIME: 78031 x 20 minutes, 75502 x 28 minutes beginning at 12:52 PM Thank you for the opportunity to participate in the care of this patient. Kristen Palomo PT, DPT, CLT [facility] [place], [place]
--- NOTE | 2022-04-04 13:17 | W.ANESPOSTOP ---
Postoperative Evaluation Date, Time and Location Date Performed: 04/04/22 Time Performed: 12:41 Patient Location: Day Surgery Unit Vital Signs Most Recent Imported Vital Signs: Most Recent Vital Signs Temp Pulse Resp BP Pulse Ox 36.0 C L 70 16 146/70 H 97 04/04/22 12:45 04/04/22 12:45 04/04/22 12:45 04/04/22 12:45 04/04/22 12:45 Pain Score Most Recent Pain Score: Most Recent Pain Score Pain Level 3 04/04/22 12:45 Assessment Mental Status: Awake (Alert & Oriented to Patient Baseline) Airway and Respiratory Function: Patent airway with normal (patient baseline) respiratory exam Cardiovascular Function: Hemodynamically Stable Hydration Status: Adequately Hydrated Nausea & Vomiting: No Nausea or Vomiting Pain: Pain is tolerable per patient Peripheral Nerve Block: Regional nerve block not resolved at time of post operative discharge
--- NOTE | 2022-04-04 19:49 | ROE_ITS ---
Date of service: 04/04/22 Time of Service: 11:00 Operative Note Operative Note DATE OF PROCEDURE: 04/04/22 PRE-OP DIAGNOSIS: Right Knee Arthritis POST-OP DIAGNOSIS: same PROCEDURE: Right Total Knee Replacement SURGEON: Herman Jimenez TRAIL[employer]UCK DRIVER: Edwige Monahan ANESTHESIA TYPE: Spinal Refer to Anesthesia Record ESTIMATED BLOOD LOSS: 50 PATHOLOGY: none sent TOURNIQUET TIME: 0 COMPLICATIONS: None Patient was transported to: PACU Patient's condition: stable Implants: 1. Depuy Attune Cementless Cruciate Retaining Femoral Component, Size 4 2. Depuy Attune Cementless Rotating Platform Tibial Component, Size 3 3. Depuy Attune 4x7 CR/RP Poly 4. Depuy Attune Patellar Component, Size 32 Indications: I have seen Tg in clinic for symptoms of knee arthritis, confirmed with radiographic findings. She has exhausted nonoperative methods and was having significant limitations in daily function and desired better function and less pain. I discussed the technical details of a knee replacement. I explained the risks of the procedure to include, but not limited to, bleeding, infection, pain, stiffness, fracture, damage to nerves and vessels, damage to muscles and tendons, loosening, need for repeat procedure, blood clot and cardiopulmonary demise. Despite these risks, Tg elected to proceed. Findings: There was significant signs of arthritis throughout the knee. Procedure Description: Tg was greeted in the preoperative holding area where the correct side was identified and marked. The consent was reviewed with the patient and signed. The history and physical was updated. All questions were answered. Preoperative medications were administered: Acetaminophen 1000mg, Celebrex 400mg, and Gabapentin 300mg. An adductor canal block was then administered by the anesthesia team in the PACU. Tg was taken back to the operating room. A spinal anesthestic was then administered. The patient was placed into the supine position on the operating room table. A nonsterile tourniquet was placed high onto the leg but only used for cementing. Posts were placed for positioning during the procedure. All bony prominences were well padded. Prophylactic antibiotics in the form of Cefazolin were administered. 1g of Tranxemic Acid was given intravenously within 30 minutes of incision. The right leg was then prepped with Chloraprep and draped in a standard fashion with impervious stockinette. A second prep with Chloraprep was performed prior to application of Iodine impregnated skin protection. A timeout to confirm correct identity, side and site, procedure, allergies, anesthesia, and medical concerns was performed. With the knee in some flexion, a midline incision was made overlying the knee. Full thickness skin flaps were raised once the extensor mechanism was encountered. These were raised medially and laterally. Any bleeding was controlled with electrocautery. Once the extensor mechanism was fully exposed, a medial parapatellar arthrotomy was performed in a flexed position. All bleeding from the arthrotomy and the geniculate arteries was coagulated. A medial subperiosteal peel was performed with electrocautery to the midcoronal plane. The fat pad was removed while keeping the patellar tendon protected. The anterior distal femur synovium was removed for later visualization. The ACL and PCL were resected and the anterior horn of the lateral meniscus was transected. The knee was then flexed with the patella everted. Large osteophytes from the tibia were removed. Large osteophytes from the femur were removed. Using a step drill, and based on preoperative templating, the femoral canal was entered. This was done with a step drill without any difficulty. The intramedullary distal femoral cut guide was inserted, set to a 6 degree valgus cut and 9mm cut thickness. The distal femoral cut guide was then held in position and pinned. With the soft tissues protected, the distal cut was pe rformed. This was passed over a few times to ensure a planar cut. I then turned attention to the tibia. The extramedullary guide was placed onto the leg. The distal aspect was slid medial to adjust for position of center of ankle and stay in line with shaft of the tibia. Approximately 3-5 degrees of posterior slope was kept in the proximal cutting guide. The center of the guide was aligned with the PCL. The stylus was used to assess cut thickness. The medial side, most involved side, was set for a 3mm cut. This was then held in position and pinned into place with 2 additional pins and a cross pin for stability. The medial and lateral collateral ligaments were protected and the cut was performed. With this completed, it was assessed and noted to be of appropriate dimensions. The guide was removed. A spacer block was inserted and the knee was brought into extension. The 7mm spacer block provided full extension, without hyperextension and with stability of both the medial and lateral collateral ligaments was assessed. The pins from the femur and the tibia were then removed. The distal femur was then sized. The anterior stylus was placed onto the lateral ridge of the anterior femur. This indicated a size 4 femur. The external rotation of the guide was adjusted to 3 degrees to match the epicondylar axis, perpendicular to Mariposa?s line. The 4-in-1 cutting guide was the placed. The posterior medial femur cut was evaluated and appeared of good thickness. The spacer block was inserted underneath the cutting guide and stability was confirmed in 90 degrees of flexion. An cailin wing was used to confirm appropriate position of the anterior cut to avoid notching. This cutting guide was ensured to be flush on the cut surface and then pinned into place with headed pins. While protecting the soft tissues, quad tendon, and collateral ligaments, the anterior and posterior cuts were performed with a saw. The central two pins were removed and the posterior and anterior chamfers were cut next. The notch-cutting guide was placed. This was pinned to lateralize the femoral component as much as possible while keeping it flush on the cut surface. This was then pinned into position. A reciprocating saw was used to make the notch cut. A rasp smoothed the cut surfaces. The medial and lateral menisci were removed. A trial femoral component was then inserted, impacted down to the cut surfaces, and the lug holes were drilled. A provisional trial tibial component was placed and the knee was brought through range of motion. There was noted to be excellent extension and flexion. There was no significant instability. The patella was tracking without thumbs. A size 7mm polyethylene component provided the best range of motion and stability with less than 2mm gapping with medial and lateral stress and full extension without significant hyperextension. The tibial cut surface was fully exposed. The tibia was then sized as a 3. The tibia had been previously marked during trialing to correspond to the center of the tibial component to help with rotation. The trial was aligned to this alicia, approximately rotated to the medial 1/3rd of the tibial tubercle. The trial was pinned into place. The tibia was prepared with a reamer and a keel punch and lug holes. The knee was then brought into extension and the patella was measured as 22mm. Using the patellar clamp and cut guide, this was resected to a flat surface with at least 13mm of thickness remaining. The size 32 patella fit the best. This was oriented and then clamped into position. The lugs were drilled. The trial components were removed. The final components were opened on the back table. The periosteal and capsular tissues, especially posteriorly, around the knee were then systematically injected with a periarticular cocktail consisting of 246mg of Ropivacaine, 0.5mg of Epinephrine, 0.08mg of Clonidine, and 30mg of Ketorolac, diluted to 100cc. On the back table, with the implants opened, the cement was mixed. One batch of high viscosity cement was prepared with vacuum assistance. After the cement was ready a small amount was placed on the cut surface of the patella and the patellar button was clamped into position and held. While the cement was hardening, the cementless knee components were placed. Starting with the tibial component, the tibia was subluxed anteriorly and the lug holes of the component were lined up. The tibia was then impacted with an impactor and mallet until the tibial component was in contact with the tibia. The final polyethylene component was inserted. Then, the femoral component was inserted. The lug holes were aligned and the component was impacted into position. The knee was irrigated with Irrisept Chlorhexadine solution. This was allowed to sit in the knee for 3 minutes and then it was irrigated out with saline. After the cement had finally cured, approximately 15min, the clamp was removed from the patella and the knee was taken through range of motion. The patella was tracking with a no-thumbs technique. The capsule was then reapproximated with a No. 1 Vicryl at multiple locations. The capsule was finally closed with a No. 2 Stratafix, barbed suture. The second dosing of 1g TXA was started. Deep tissues were then reapproximated with 0 Vicryl and 2-0 Vicryl. The skin was closed with a running 3-0 Monocryl in a subcuticular fashion. This was reinforced with skin glue. A Mepilex silver dressing was applied along with a upvw-uk-ohxyl ARPIT wrap. A CryoCuff was applied. Tg was transferred to the hospital bed without difficulty an suffering no apparent complication. Tg has a good prognosis. Physical therapy will start today and without restrictions, weight-bearing as tolerated. Aspirin 81mg BID will be used for DVT prophylaxis.
== END 2022-04-04 14:32 | disposition home or self-care (01) ==
PROVIDERS: PCP Nurse Practitioner Family; Visit Provider Student in an Organized Health Care Education/Training Program
PROC: (CPT 27447; principal; 2022-04-04 09:45)
DX: M17.11 Unilateral primary osteoarthritis, right knee (principal); J45.909 Unspecified asthma, uncomplicated; I10 Essential (primary) hypertension
CPT/HCPCS: 27447; C1776; 76942; 97162; 97530; J0690; J1100; J2250; J2405

== ENCOUNTER 2022-04-09 21:00 | Emergency (ER) | payer MEDICARE, SELFPAY ==
[2022-04-09 21:00] VITALS: BP 143/51; PULSE 86; RESP 16; TEMP 37.2; O2SAT 96
--- NOTE | 2022-04-09 21:00 | ED.GENADUL_ITS ---
Discharge Plan Disposition Patient Disposition: Home Condition: Stable Discharge Details Clinical Impression: Acute pain of right knee, Status post total knee replacement, right Primary Care Provider: Franny Herzog ED Provider: Shira Samson Home Meds and New Rx's Prescriptions: Continued lisinopril 10 mg tablet 10 mg PO DAILY fluticasone propion-salmeterol [Advair Diskus] 1 EACH blister with device 1 ea Inhalation PRN simvastatin 40 MG tablet 40 mg PO DAILY omeprazole 20 MG capsule,delayed release(DR/EC) 20 mg PO DAILY PRN Vitamin D3 (calcium cit-phos) 1 EACH tablet 1 ea PO DAILY Lumigan 5 ML drops 5 ml Ophthalmic HS [id number]-Jft-[id number] 3 tab PO DAILY Fish Oil 1 cap PO DAILY Vitamin B100 1 tab PO DAILY brinzolamide [Azopt] 5 ML drops,suspension 1 drp Ophthalmic BID clobetasol 60 GM ointment 60 gm Topical HS twice weekly PRNQty: 60 estradiol [Vagifem] 10 MCG tablet 10 mcg VG HS twice weekly Qty: 8 Rx Instructions: 1 tab PV HS twice weekly Provotex Inhaler 1 puff inhalation PRN acetaminophen 500 mg tablet 1,000 mg PO Q8H PRN Qty: 90 0RF Rx Instructions: Take two tablets up to every 8 hours as needed for pain aspirin 81 mg tablet,delayed release (DR/EC) 81 mg PO BID 30 Days Qty: 60 0RF celecoxib [Celebrex] 200 mg capsule 200 mg PO BID Qty: 30 0RF docusate sodium [Colace] 100 mg capsule 100 mg PO BID Qty: 30 0RF dexamethasone 4 mg tablet 4 mg PO DAILY Qty: 2 0RF Rx Instructions: Take one tablet once daily for two days gabapentin 300 mg capsule 300 mg PO QHS Qty: 14 0RF Rx Instructions: Take one tablet at bedtime No Action hydromorphone 4 mg tablet 4 mg PO Q4H MDD 24mg PRN (Reason: pain) Qty: 24 0RF Discharge Instructions Instructions: Knee Pain (ED) Additional Instructions: Your blood tests and exam today are reassuring. Take the hydromorphone as needed and directed for pain. Follow-up with Dr. Jimenez's office tomorrow as planned. Return immediately to the emergency department if you develop any worsening or new concerning symptoms. Referrals: Herman Jimenez MD [ [facility] STAFF PHYSICIAN] - Discharge Data Discharge Date/Time-TO BE ENTERED AT DEPARTURE: 04/09/22 23:02 Discharge Physician: Shira Samson Medical Decision Making 76-year-old female with a history of obesity, hypertension, hyperlipidemia who is 1 week status post right total knee replacement with Dr. Jimenez presents with persistent right knee pain. Case discussed with Dr. Jimenez who informed us of patient's arrival for evaluation to rule out knee infection and consideration for admission for persistent pain. Vitals within normal limits. Oral temp 99. Patient appears uncomfortable but nontoxic. Her right anterior knee is warm to touch, edematous with what mostly appears consistent with ecchymosis but no obvious cellulitis, abscess or drainage. She is able to actively flex the knee to approximately 40 degrees. She is otherwise neurovascularly intact. Case discussed with Dr. Jimenez who will come to evaluate patient and likely perform joint aspiration. Will obtain screening labs and right knee x-ray. She was prescribed oxycodone last week but started on hydromorphone yesterday for worsening pain. We will give a dose of Dilaudid IV. Patient evaluated by Dr. Jimenez at bedside who suspects her pain and physical examination findings likely secondary to hemarthrosis and patient had improvement in mobility of knee after joint aspiration here at bedside by Dr. Jimenez. Her white blood cell count and lactate are within normal limits. Joint fluid sent for analysis per Dr. Jimenez. Patient is cleared for discharge to home. He recommends short knee immobilizer and orthopedics with follow up with her tomorrow. Patient and feel comfortable going home. Usual and customary return precautions given prior to discharge. Medical Records Medical records reviewed: Yes I reviewed the patient's medical records. Lab Data Lab results reviewed: Yes I reviewed the patient's lab results. Labs: 04/09/22 21:29 Blood Blood Culture - Preliminary NO GROWTH 48 HOURS 04/09/22 21:20 Blood Blood Culture - Preliminary NO GROWTH 48 HOURS 04/09/22 22:20 Synovial - Right Knee Body Fluid Culture - Preliminary 04/09/22 22:20 Synovial - Right Knee Gram Stain - Final Laboratory Tests Range/Units 04/09/22 04/09/22 04/09/22 21:20 21:20 21:20 WBC (4.4-10.8) 10^3/uL 10.22 RBC (3.93-5.22) 10^6/uL 3.16 L Hgb (11.2-15.7) g/dL 10.2 L Hct (36.0-46.0) % 30.1 L MCV (80-95) fL 95 MCH (27.0-33.0) pg 32.3 MCHC (32.0-36.0) % 33.9 RDW (11.7-14.6) % 12.5 Plt Count (130-400) 10^3/uL 221 MPV (8.0-11.0) fL 9.0 Immature Gran % 1.4 Neutrophils % 66.4 Lymphocytes % 21.1 Monocytes % 9.5 Eosinophils % 1.2 Basophils % 0.4 Nucleated RBC % (0.0-0.3) % 0.2 Absolute Neutrophils (1.2-6.7) 10^3/uL 6.79 H Absolute Lymphocytes (1.2-3.4) 10^3/uL 2.16 Absolute Monocytes (0.1-0.8) 10^3/uL 0.97 H Absolute Eosinophils (0.0-0.7) 10^3/uL 0.12 Absolute Basophils (0.0-0.2) 10^3/uL 0.04 VBG Lactate (0.6-1.4) mmol/L 1.2 Sodium (136-145) mmol/L 134 L Potassium (3.5-5.1) mmol/L 4.4 Chloride (98-107) mmol/L 98 Carbon Dioxide (21.0-32.0) mmol/L 29.4 Anion Gap (3-11) mmol/L 6.6 BUN (7-18) mg/dL 18 Creatinine (0.55-1.02) mg/dL 0.9 Est GFR (CKD-EPI 2020) (mL/min/1.73m2) 67.08 Glucose (74-106) mg/dL 122 H Calcium (8.5-10.1) mg/dL 9.1 Total Bilirubin (0.2-1.0) mg/dL 0.4 AST (15-37) U/L 23 ALT (14-59) U/L 35 Alkaline Phosphatase (46-116) U/L 67 Total Protein (6.4-8.2) g/dL 6.9 Albumin (3.4-5.0) g/dL 3.1 L Fluid Source Fluid Color Fluid Clarity Fluid WBC (0) uL Fld Polynuclear WBCs % % Fluid Mononuclear Cell % Range/Units 04/09/22 22:20 WBC (4.4-10.8) 10^3/uL RBC (3.93-5.22) 10^6/uL Hgb (11.2-15.7) g/dL Hct (36.0-46.0) % MCV (80-95) fL MCH (27.0-33.0) pg MCHC (32.0-36.0) % RDW (11.7-14.6) % Plt Count (130-400) 10^3/uL MPV (8.0-11.0) fL Immature Gran % Neutrophils % Lymphocytes % Monocytes % Eosinophils % Basophils % Nucleated RBC % (0.0-0.3) % Absolute Neutrophils (1.2-6.7) 10^3/uL Absolute Lymphocytes (1.2-3.4) 10^3/uL Absolute Monocytes (0.1-0.8) 10^3/uL Absolute Eosinophils (0.0-0.7) 10^3/uL Absolute Basophils (0.0-0.2) 10^3/uL VBG Lactate (0.6-1.4) mmol/L Sodium (136-145) mmol/L Potassium (3.5-5.1) mmol/L Chloride (98-107) mmol/L Carbon Dioxide (21.0-32.0) mmol/L Anion Gap (3-11) mmol/L BUN (7-18) mg/dL Creatinine (0.55-1.02) mg/dL Est GFR (CKD-EPI 2020) (mL/min/1.73m2) Glucose (74-106) mg/dL Calcium (8.5-10.1) mg/dL Total Bilirubin (0.2-1.0) mg/dL AST (15-37) U/L ALT (14-59) U/L Alkaline Phosphatase (46-116) U/L Total Protein (6.4-8.2) g/dL Albumin (3.4-5.0) g/dL Fluid Source R Knee Fluid Color Red Fluid Clarity Cloudy Fluid WBC (0) uL 8538 Fld Polynuclear WBCs % % 97 Fluid Mononuclear Cell % 3 Sign Out No HPI General Mode of arrival: EMS . Date/Time Provider Initiated Documentation: 04/09/22 21:11 . Limitations to Documentation: physical limitation . Information obtained by: patient . HPI Narrative: Patient is a 76-year-old female with a history of hypertension, hyperlipidemia, osteoarthritis who is 1 week status post total right knee replacement with Dr. Jimenez presents with persistent knee pain. Dr. Jimenez called the ED informing us of patient's arrival with recommendation for evaluation and work-up to rule out knee infection and the possibility of admission for persistent pain. Patient states her pain is at rest but is worse with any movement. Patient states she has been ambulating using a walker. She denies any fever and states she has been eating normally. Related Data Home Medications Medication Instructions Recorded Confirmed [id number] 3 tab PO DAILY 04/15/13 04/04/22 Fish Oil 1 cap PO DAILY 04/15/13 04/04/22 Vitamin B100 1 tab PO DAILY 04/15/13 04/04/22 bimatoprost 0.01 % eye drops 5 ml ophthalmic (eye) HS 04/15/13 04/04/22 ([place]) calcium cmb no.1-vit [id number]-B12 1 ea PO DAILY 04/15/13 04/04/22 120 mg-1,000 unit-10 mg tablet (Vitamin D3 (with calcium cit-phos)) fluticasone 250 mcg-salmeterol 50 1 ea inhalation PRN 04/15/13 04/04/22 mcg/dose blistr powdr for inhalation (Advair Diskus) omeprazole 20 mg capsule,delayed 20 mg PO DAILY PRN 04/15/13 04/04/22 release simvastatin 40 mg tablet 40 mg PO DAILY 04/15/13 04/04/22 brinzolamide 1 % eye 1 drp ophthalmic (eye) BID 08/13/13 04/04/22 drops,suspension (Azopt) clobetasol 0.05 % topical ointment 60 gm topical HS twice weekly PRN 06/29/14 04/04/22 #60 grams estradiol 10 mcg vaginal tablet 10 mcg vaginal HS twice weekly #8 06/29/14 04/04/22 (Vagifem) tabs Provotex Inhaler 1 puff inhalation PRN 03/28/15 03/26/22 lisinopril 10 mg tablet 10 mg PO DAILY 07/21/21 04/04/22 acetaminophen 500 mg tablet 1,000 mg PO Q8H PRN pain #90 tabs 04/04/22 aspirin 81 mg tablet,delayed 81 mg PO BID 30 days #60 tabs 04/04/22 release celecoxib 200 mg capsule (Celebrex) 200 mg PO BID #30 caps 04/04/22 dexamethasone 4 mg tablet 4 mg PO DAILY #2 tabs 04/04/22 docusate sodium 100 mg capsule 100 mg PO BID #30 caps 04/04/22 (Colace) gabapentin 300 mg capsule 300 mg PO QHS #14 caps 04/04/22 hydromorphone 4 mg tablet 4 mg PO Q4H PRN pain #24 tabs 04/10/22 Previous Rx's Medication Instructions Recorded acetaminophen 500 mg tablet 1,000 mg PO Q8H PRN pain #90 tabs 04/04/22 aspirin 81 mg tablet,delayed 81 mg PO BID 30 days #60 tabs 04/04/22 release celecoxib 200 mg capsule (Celebrex) 200 mg PO BID #30 caps 04/04/22 dexamethasone 4 mg tablet 4 mg PO DAILY #2 tabs 04/04/22 docusate sodium 100 mg capsule 100 mg PO BID #30 caps 04/04/22 (Colace) gabapentin 300 mg capsule 300 mg PO QHS #14 caps 04/04/22 hydromorphone 4 mg tablet 4 mg PO Q4H PRN pain #24 tabs 04/10/22 Allergies Allergy/AdvReac Type Severity Reaction Status Date / Time brimonidine tartrate Allergy Mild Eye Unverified 04/09/22 21:11 [From Alphagan P] Irritation/GI Upset General Stated Complaint: Orthopedic JIGAR: 3 Review of Systems All systems reviewed & are unremarkable except as noted in HPI and below Constitutional Constitutional: Reports as per HPI, Denies chills and Denies fever(s) Eyes Eyes: Denies blurry vision ENT Ears, Nose, Mouth, and Throat: Denies dizziness, Denies sore throat and Denies throat swelling Cardiovascular Cardiovascular: Denies chest pain and Denies dyspnea Respiratory Respiratory: Denies cough and Denies dyspnea Gastrointestinal Gastrointestinal: Denies abdominal pain, Denies diarrhea and Denies vomiting Genitourinary Genitourinary: Denies hematuria and Denies dysuria Musculoskeletal Musculoskeletal: Denies back pain and Denies numbness Comments: R knee pain Integumentary/Breasts Skin/Breast: Denies lesions and Denies rash Neurologic Neurologic: Denies dizziness, Denies localized weakness and Denies numbness Allergic/Immunologic Allergic/Immunologic: Denies throat swelling PFSH All Active Problems (Updated 04/10/22 @ 06:09 by Herman Jimenez MD) Hemarthrosis, right knee (Acute) Acute pain of right knee (Acute) Status post total knee replacement, right (Acute) Left knee DJD (Acute) Degenerative joint disease of right knee (Acute) Polyp at cervical os (Acute 03/28/15) Medical History Asthma Decreased hearing Glaucoma High cholesterol Hypertension Impaired fasting glucose Lichen sclerosus et atrophicus (08/13/13) Low back pain Memory impairment Osteoarthritis Osteoporosis Post-nasal drip Urinary frequency Surgical History History of carpal tunnel release of both wrists approx 2006 History of colonoscopy Social History Smoking/Tobacco Use Status: Never Smoking risk assessment performed?: Yes Alcohol Intake: current Alcohol Intake frequency: 0-2 drinks per day Alcohol type: wine and hard liquor Drug use: Never Substance use type: does not use Do you feel safe at home: Yes Do you feel safe in your relationship?: Yes Exam Const General: cooperative, healthy appearing and no acute distress HENMT Head: normal to inspection Face and sinus: normal facial exam Eyes General: appearance normal, both eyes and all related structures Pupils: PERRL EOM: EOM intact bilaterally Neck Neck: normal visual inspection and No submandibular swelling Lymphatic: no lymphadenopathy noted Chest Chest: normal inspection of the chest and no tenderness Resp Effort & Inspection: normal respiratory effort and able to speak in complete sentences Cardio Rate: regular rate GI Inspection: normal to inspection Palpation: soft, not firm, not rigid and nontender Auscultation: normal bowel sounds Back/Spine/Pelvis Thoracic/Lumbar Spine: thoracic and lumbar spine normal to inspection Pelvis: no pain with anterior-posterior compression Skin General skin exam: no rashes or lesions noted Neuro General: patient alert, patient awake and patient oriented x3 Cognition: normal cognition Speech: speech normal Motor: muscle tone normal throughout Sensory Exam: no sensory deficits noted Extrem Knee images: 1. Moderate edema around anterior aspect of surgical site of anterior knee. There is a moderate amount of ecchymosis noted around the surgical site, most prominent on medial aspect. Knee is warm to touch. No obvious drainage. No obvious fluctuance or induration. Other: Patient is able to actively flex her right knee to approximately 30-40 degrees. Bilateral PT/DP pulses intact. Psych Appearance: grossly normal Mental Status: mental status grossly normal Speech and Movement: speech and movement normal Affect: normal affect
[2022-04-09 21:29] LABS: Lactate 1.2 mmol/L (0.6-1.4)
[2022-04-09 21:30] LABS: Abs Immature Grans 0.14 10^3/uL (0.0-0.06); Absolute Basophil Count 0.04 10^3/uL (0.0-0.2); Absolute Eosinophil Count 0.12 10^3/uL (0.0-0.7); Absolute Lymphocyte Count 2.16 10^3/uL (1.2-3.4); Absolute Monocyte Count 0.97 10^3/uL (0.1-0.8); Absolute Neutrophil Count 6.79 10^3/uL (1.2-6.7); Basophils % 0.4; Eosinophils % 1.2; HCT 30.1 % (36.0-46.0); HGB 10.2 g/dL (11.2-15.7); Immature Grans % 1.4; Lymphocytes % 21.1; MCH 32.3 pg (27.0-33.0); MCHC 33.9 % (32.0-36.0); MCV 95 fL (80-95); Monocytes % 9.5; Neutrophils % 66.4; Nucleated RBC 0.2 % (0.0-0.3); Platelet Count 221 10^3/uL (130-400); RBC 3.16 10^6/uL (3.93-5.22); RDW 12.5 % (11.7-14.6); RDW-SD 43.3 fL; WBC 10.22 10^3/uL (4.4-10.8)
[2022-04-09] MEDS: HYDROmorphone 2 MG/ML SYR 1 MG IVP (21:46)
[2022-04-09 21:47] LABS: ALT 35 U/L (14-59); AST 23 U/L (15-37); Albumin 3.1 g/dL (3.4-5.0); Alkaline Phosphatase 67 U/L (46-116); Anion Gap 6.6 mmol/L (3-11); BUN 18 mg/dL (7-18); Bilirubin, Total 0.4 mg/dL (0.2-1.0); CO2 29.4 mmol/L (21.0-32.0); CREATININE 0.9 mg/dL (0.55-1.02); Calcium 9.1 mg/dL (8.5-10.1); Chloride 98 mmol/L (98-107); Estimated GFR 67.08 (mL/min/1.73m2); Glucose 122 mg/dL (74-106); Potassium 4.4 mmol/L (3.5-5.1); Sodium 134 mmol/L (136-145); Total Protein 6.9 g/dL (6.4-8.2)
[2022-04-09 23:13] LABS: Clarity Cloudy; Nucleated Cells 8538 uL (0)
[2022-04-09 23:14] LABS: Mononuclear Cells 3 %; Polynuclear Cells 97 %
--- NOTE | 2022-04-10 06:02 | OCONE_ITS ---
Date of service: 04/09/22 Time of Service: 22:00 History of Present Illness History of Present Illness Chief Complaint: Right knee pain Narrative: Tg is a 76-year-old who is 6 days status post right knee replacement. I have been in communication with her and her through the weekend for continued pain. She reports that the pain developed on Saturday. It required increasing doses of oxycodone and eventually switched to hydromorphone 4 mg. However, despite these medications the pain was reported to me as unbearable. She also has reported to be going to the bathroom to urinate multiple times. She says that this is exhausting. She denies any fevers or chills. The primary dressing was left in place but the surrounding skin was reported to be intact. She has been able to move the knee and has been able to rest and do some of her activities after pain medication for short period of time. However, today she says that she has been unable to. Therefore after reviewing this with her over the phone I recommended she come to the emergency department to be evaluated with concern about decreasing mobility and increasing pain. Currently resting in the bed Tg denies any significant pain, rating it of a 3 or 4. She denies fevers or chills. She denies chest pain or shortness of breath. She denies drainage from the wound. She has been voiding frequently without any significant irritation or odor or dysuria. Consults Consult date: 04/09/22 Requesting physician: Shira Samson Consult Reason Postoperative right knee pain Assessment and Plan Assessment and plan (1) Status post total knee replacement, right: Status: Acute (2) Acute pain of right knee: Status: Acute (3) Hemarthrosis, right knee: Status: Acute Assessment and plan: Tg is a 76-year-old who is 6 days status post right knee replacement. In person, she did not objectively exhibit any concerning features. I was able to passively move the knee without any significant pain. There was a large effusion which turned out to be a hemarthrosis and was evacuated. After this evacuation she was able stand at the bedside and also move the knee from nearly fully straight, lacking maybe 5 degrees to about 90 degrees of flexion with no significant increase in pain. The cell count for this fluid to be largely unreliable given its proximity to the surgery. However, I will send it for culture. It does appear to be gloria blood and usually if it were to be i nfected, there will be a purulent material inside the knee. At this point, I recommend that she continue with her current pain regimen of hydromorphone. Hopefully, removing the fluid from the knee will improve her pain. I will provide her with a knee immobilizer to wear for the next couple days to hopefully decrease some of her motion, prevent recurrence of the fluid, and to give her knee at rest. This will offload the muscles and hopefully improve her pain. My team will touch base with her tomorrow to see how she is doing to make any determinations about medications but hopefully she is going to turn the corner. I will continue to follow the cultures although my suspicion is extremely low. Review of Systems All systems reviewed & are unremarkable except as noted in HPI and below PFSH All Active Problems (Updated 04/10/22 @ 06:09 by Herman Jimenez MD) Hemarthrosis, right knee (Acute) Acute pain of right knee (Acute) Status post total knee replacement, right (Acute) Left knee DJD (Acute) Degenerative joint disease of right knee (Acute) Polyp at cervical os (Acute 03/28/15) Medical History Asthma Decreased hearing Glaucoma High cholesterol Hypertension Impaired fasting glucose Lichen sclerosus et atrophicus (08/13/13) Low back pain Memory impairment Osteoarthritis Osteoporosis Post-nasal drip Urinary frequency Surgical History History of carpal tunnel release of both wrists approx 2006 History of colonoscopy Social History Smoking/Tobacco Use Status: Never Smoking risk assessment performed?: Yes Alcohol Intake: current Alcohol Intake frequency: 0-2 drinks per day Alcohol type: wine and hard liquor Drug use: Never Substance use type: does not use Do you feel safe at home: Yes Do you feel safe in your relationship?: Yes Exam Narrative Exam Narrative: Resting in the hospital bed. No acute distress. Alert and orient x3. Conversant and in no apparent pain. Evaluation of the right lower extremity shows notable effusion and swelling about the right knee. There is some discoloration with signs of bleeding with some purple discoloration adjacent to the incision also over the medial aspect of the knee. There is some ecchymosis seen extending proximally into the medial thigh. The incision is clean dry and intact. Mild swelling seen distally into the leg. She is able to actively dorsiflex and plantarflex the foot as well as extend and flex the great toe. Sensation is intact to light touch over the deep and superficial peroneal nerve and tibial nerve. There is some pain to palpation about the knee. However, when she relaxes I am able to flex the knee through an arc of about 5 degrees of extension to 60 degrees of flexion without pain. She does report increasing pain although there is no objective signs such as grimacing or wincing or restriction of my passive motion of the knee. An aspiration of the knee was performed with bloody fluid obtained. Results Last Vital Signs Temp 37.2 C 04/09/22 21:00 Pulse 86 04/09/22 21:00 Resp 16 04/09/22 21:00 BP 143/51 H 04/09/22 21:00 Pulse Ox 96 04/09/22 21:00 Labs Result diagrams: 04/09/22 21:20 04/09/22 21:20 Labs: Laboratory Results - last 24 hr 04/09/22 04/09/22 04/09/22 21:20 21:20 21:20 WBC 10.22 RBC 3.16 L Hgb 10.2 L Hct 30.1 L MCV 95 MCH 32.3 MCHC 33.9 RDW 12.5 Plt Count 221 MPV 9.0 Immature Gran % 1.4 Neutrophils % 66.4 Lymphocytes % 21.1 Monocytes % 9.5 Eosinophils % 1.2 Basophils % 0.4 Nucleated RBC % 0.2 Absolute Neutrophils 6.79 H Absolute Lymphocytes 2.16 Absolute Monocytes 0.97 H Absolute Eosinophils 0.12 Absolute Basophils 0.04 VBG Lactate 1.2 Sodium 134 L Potassium 4.4 Chloride 98 Carbon Dioxide 29.4 Anion Gap 6.6 BUN 18 Creatinine 0.9 Est GFR (CKD-EPI 2020) 67.08 Glucose 122 H Calcium 9.1 Total Bilirubin 0.4 AST 23 ALT 35 Alkaline Phosphatase 67 Total Protein 6.9 Albumin 3.1 L Fluid Source Fluid Color Fluid Clarity Fluid WBC Fld Polynuclear WBCs % Fluid Mononuclear Cell 04/09/22 22:20 WBC RBC Hgb Hct MCV MCH MCHC RDW Plt Count MPV Immature Gran % Neutrophils % Lymphocytes % Monocytes % Eosinophils % Basophils % Nucleated RBC % Absolute Neutrophils Absolute Lymphocytes Absolute Monocytes Absolute Eosinophils Absolute Basophils VBG Lactate Sodium Potassium Chloride Carbon Dioxide Anion Gap BUN Creatinine Est GFR (CKD-EPI 2020) Glucose Calcium Total Bilirubin AST ALT Alkaline Phosphatase Total Protein Albumin Fluid Source R Knee Fluid Color Red Fluid Clarity Cloudy Fluid WBC 8538 Fld Polynuclear WBCs % 97 Fluid Mononuclear Cell 3 Procedures Joint Aspiration/Injection Joint Asp./Inject. 1: Time out performed: Yes Side of body: right Joint aspirated: knee Ultrasound guidance: No Skin prep: Chlorhexidine Local anesthesia used: other (Ethyl chloride) Needle size used: 18G Fluid obtained: bloody Total fluid obtained (ml): 45 Medication injected, if any: other (5 cc of 1% lidocaine with 5 cc of 0.5% bupivacaine) Amount of medication injected (ml): 10 Patient tolerated procedure: well Complications: none Additional comments: Fluid sent to the lab for cell count and culture
== END 2022-04-09 23:02 | disposition home or self-care (01) ==
PROVIDERS: Student in an Organized Health Care Education/Training Program; Emergency Provider Physician Assistant; PCP Nurse Practitioner Family
DX: G89.18 Other acute postprocedural pain (principal); M25.561 Pain in right knee; I10 Essential (primary) hypertension; M19.90 Unspecified osteoarthritis, unspecified site; J45.909 Unspecified asthma, uncomplicated; E78.00 Pure hypercholesterolemia, unspecified; M81.0 Age-related osteoporosis without current pathological fracture; Z79.51 Long term (current) use of inhaled steroids
CPT/HCPCS: 36415; 80053; 87040; 96361; 96374; 99284; 83605; 85025; 87070; 87205; 89051; J1170

== ENCOUNTER 2022-04-13 11:43 | Outpatient (CLI) | payer MEDICARE, SELFPAY ==
--- NOTE | 2022-04-13 11:15 | DI.RAD_ITS ---
Exam(s) XR KNEE RT 1V XR STANDING ALIGNMENT EXAM: XR STANDING ALIGNMENT CLINICAL HISTORY: 1ST POST OP R TKA. TECHNIQUE: 2D digital imaging was performed. Standing AP views were performed from the pelvis throu gh the ankles. COMPARISON: CR XR KNEE LT 3V AP,LAT,KING from 07/18/2020 CR XR KNEE RT 1V from 01/29/2022 CR XR STANDING ALIGNMENT from 01/29/2022 CR XR KNEE RT 1V from 04/13/2022 FINDINGS: BONES: No acute fracture is present. No bony destructive lesion is seen. Leg length discrepancy: Left femoral head projects 10 millimeters superior to the right. JOINTS: Knees: Right: Total knee prosthesis has been placed since the previous exam. Alignment appea rs satisfactory on the lateral view..Left: [id number]-lm-[id number] narrowing of the medial femoral tibial aubrie int space and periarticular spurring. The ankle joints are unremarkable. The hip joints are unremarkable. SOFT TISSUE: Anterior soft tissue swelling of the right knee. Right lower leg edema. IMPRESSION: Degenerative changes of the mid medial femoral tibial joint space of the left knee. Right knee pros thesis.. 10 millimeter leg length discrepancy. DATA REPOSITORY: RADIATION DOSE DELIVERED:
== END 2022-04-13 11:44 | disposition home or self-care (01) ==
LOC: DIORS 11:43
PROVIDERS: PCP Nurse Practitioner Family; Referring Provider Nurse Practitioner Family; Visit Provider Student in an Organized Health Care Education/Training Program
DX: Z96.651 Presence of right artificial knee joint (principal); Z47.1 Aftercare following joint replacement surgery; M25.061 Hemarthrosis, right knee; G89.18 Other acute postprocedural pain
CPT/HCPCS: 73560; 77073

== ENCOUNTER 2022-04-20 11:30 | Outpatient (REF) | payer MEDICARE, SELFPAY ==
[2022-04-20 12:05] LABS: Abs Immature Grans 0.05 10^3/uL (0.0-0.06); Absolute Basophil Count 0.04 10^3/uL (0.0-0.2); Absolute Eosinophil Count 0.14 10^3/uL (0.0-0.7); Absolute Monocyte Count 0.54 10^3/uL (0.1-0.8); Absolute Neutrophil Count 4.69 10^3/uL (1.2-6.7); Basophils % 0.5; Eosinophils % 1.8; HCT 30.3 % (36.0-46.0); HGB 10.2 g/dL (11.2-15.7); Immature Grans % 0.6; Lymphocytes % 31.4; MCH 32.6 pg (27.0-33.0); MCHC 33.7 % (32.0-36.0); MCV 97 fL (80-95); MPV 8.8 fL (8.0-11.0); Monocytes % 6.8; Neutrophils % 58.9; Platelet Count 267 10^3/uL (130-400); RBC 3.13 10^6/uL (3.93-5.22); RDW 13.2 % (11.7-14.6); RDW-SD 44.8 fL; WBC 7.96 10^3/uL (4.4-10.8)
[2022-04-20 12:07] LABS: ESR 18 mm/hr (0-30)
== END 2022-04-20 11:31 | disposition home or self-care (01) ==
LOC: LBN 11:30
PROVIDERS: PCP Nurse Practitioner Family; Visit Provider Student in an Organized Health Care Education/Training Program
DX: M25.561 Pain in right knee (principal)
CPT/HCPCS: 85652; 85025

== ENCOUNTER → 2022-04-26 09:55 | Outpatient (BNVA) | payer MEDICARE, SELFPAY | PROVIDERS: PCP Nurse Practitioner Family; Referring Provider Nurse Practitioner Family; Visit Provider Student in an Organized Health Care Education/Training Program | DX: Z47.1 Aftercare following joint replacement surgery (principal); G89.18 Other acute postprocedural pain; Z96.651 Presence of right artificial knee joint ==

== ENCOUNTER → 2022-05-17 11:37 | Outpatient (BNVA) | payer MEDICARE, SELFPAY | PROVIDERS: PCP Nurse Practitioner Family; Referring Provider Nurse Practitioner Family; Visit Provider Student in an Organized Health Care Education/Training Program | DX: Z47.1 Aftercare following joint replacement surgery (principal); Z96.651 Presence of right artificial knee joint; G89.18 Other acute postprocedural pain ==

== ENCOUNTER 2022-05-24 12:52 | Outpatient (REF) | payer MEDICARE, SELFPAY ==
[2022-05-24 21:50] LABS: TSH (W/Ref FT4) 3.32 uIU/mL (0.36-3.74); Vitamin B12 934 pg/mL (193-986)
== END 2022-05-24 12:53 | disposition home or self-care (01) ==
LOC: NCHCN 12:52
PROVIDERS: PCP Nurse Practitioner Family; Visit Provider Nurse Practitioner Family
DX: R41.3 Other amnesia (principal)
CPT/HCPCS: 82607; 84443

== ENCOUNTER → 2022-05-31 12:24 | Outpatient (BNVA) | payer MEDICARE, SELFPAY | PROVIDERS: PCP Nurse Practitioner Family; Referring Provider Nurse Practitioner Family; Visit Provider Nurse Practitioner Adult Health | DX: I10 Essential (primary) hypertension (principal); Z79.891 Long term (current) use of opiate analgesic; G89.29 Other chronic pain; R41.89 Other symptoms and signs involving cognitive functions and awareness | CPT/HCPCS: 99204; 99215 ==

== ENCOUNTER → 2022-06-15 10:02 | Outpatient (BNVA) | payer MEDICARE, SELFPAY | PROVIDERS: PCP Nurse Practitioner Family; Referring Provider Nurse Practitioner Family; Visit Provider Physician Assistant | DX: Z47.1 Aftercare following joint replacement surgery (principal); Z96.651 Presence of right artificial knee joint ==

== ENCOUNTER → 2022-07-27 09:48 | Outpatient (BNVA) | payer MEDICARE, SELFPAY | PROVIDERS: PCP Nurse Practitioner Family; Referring Provider Nurse Practitioner Family; Visit Provider Student in an Organized Health Care Education/Training Program | DX: Z47.1 Aftercare following joint replacement surgery (principal); Z96.651 Presence of right artificial knee joint | CPT/HCPCS: 99212 ==

== ENCOUNTER 2022-08-21 00:10 | Outpatient (CLI) | payer MEDICARE, SELFPAY ==
--- NOTE | 2022-08-21 12:00 | DI.MAMMO_ITS ---
Exam(s) MAMMO SCREENING EXAM: MAMMO SCREENING CLINICAL HISTORY: SCREENING, Z12.39. TECHNIQUE: Bilateral full field digital CC and MLO mammographic images were obtained with 3D tomosyn thesis and utilizing computer aided detection (CAD). COMPARISON: Prior mammograms dating back to 2013 were reviewed. FINDINGS: No new right breast findings. 3D imaging of the left breast reveals subtle area of architectural distortion on the cc view 6 o'cloc k, more evident on the CC than on the MLO images. Benign-appearing microcalcifications noted this region. IMPRESSION: No radiographic evidence of malignancy in the right breast. Left breast subtle architectural distortion seen on the 3D cc image. Recommend spot compression 3D c c view of the left breast as well as complete left breast ultrasound. BI-RADS Category 0 - Assessment Incomplete: Need additional imaging evaluation Breast Density - Category B - Scattered areas of fibroglandular density Breast density Category C or D implies that the patient has dense breast tissue. Dense breast tissue can make it harder to find cancer on a mammogram. Dense breast tissue is also associated with an incr eased risk of breast cancer. This information about the result of the mammogram report was provided to the patient to raise their awareness. Use this report when you speak with the patient about their risks for breast cancer, which includes their family history. At that time, you may recommend additional screening tests (Ultrasoun d or MRI) as these tests may add significant information. A negative radiographic report should not delay biopsy if a dominant or clinically suspicious mass is present. Up to ten percent of cancers are not identified on mammography. A negative report may reinforce clinical impression. Adenosis and dense breasts may obscure an underlying neoplasm. False positive reports average 6 to 10%. Patient will receive a letter notifying them of these results.
== END 2022-08-21 00:30 ==
LOC: DI 00:10
PROVIDERS: PCP Nurse Practitioner Family; Visit Provider Nurse Practitioner Family
DX: Z12.31 Encounter for screening mammogram for malignant neoplasm of breast (principal); R92.8 Other abnormal and inconclusive findings on diagnostic imaging of breast
CPT/HCPCS: 77063; 77067

== ENCOUNTER 2022-08-24 00:42 | Outpatient (CLI) | payer MEDICARE, SELFPAY ==
--- NOTE | 2022-08-24 10:40 | DI.MAMMO_ITS ---
Exam(s) MAMMO SCREEN CALL BACK UNI EXAM: MAMMO SCREEN CALL BACK UNI CLINICAL HISTORY: LEFT BREAST ARCHITECTURAL DISORTION R92.8 ABNL MAMMO TECHNIQUE: Spot compression views with tomographic imaging were performed. COMPARISON: 21 August 2022 and exams back to 2012. FINDINGS: The area in question in the central left breast appears unchanged from prior exams back to 2013. No suspicious masses or suspicious microcalcifications are seen. IMPRESSION: BI-RADS Category 1, Negative Yearly screening mammography is recommended. Breast Density - Category B, scattered fibroglandular densities.
== END 2022-08-24 01:02 ==
LOC: DI 00:42
PROVIDERS: PCP Nurse Practitioner Family; Visit Provider Nurse Practitioner Family
DX: R92.8 Other abnormal and inconclusive findings on diagnostic imaging of breast (principal)
CPT/HCPCS: 77063; 77067

== ENCOUNTER → 2023-02-07 11:49 | Outpatient (BNVA) | payer MEDICARE, SELFPAY | PROVIDERS: PCP Nurse Practitioner Family; Referring Provider Nurse Practitioner Family; Visit Provider Physical Therapy Assistant | DX: Z12.11 Encounter for screening for malignant neoplasm of colon (principal); Z86.010 Personal history of colon polyps ==

== ENCOUNTER 2023-02-25 07:32 | Day surgery (SDC) | payer MEDICARE, SELFPAY ==
--- NOTE | 2023-02-24 15:37 | W.PM.DSUDISC ---
Date of service: 02/25/23 Time of Service: 09:34 Discharge Plan Disposition Patient Disposition: Home Condition: Good Discharge Details Reason For Visit: Screening colonoscopy Attending Provider: Dequan Pabon Primary Care Provider: Franny Herzog Home Meds and New Rx's Prescriptions: Continued lisinopril 10 mg tablet 10 mg PO DAILY cholecalciferol (vitamin D3) 25 mcg (1,000 unit) capsule 25 mcg PO DAILY vitamin E (dl, acetate) 450 mg (1,000 unit) capsule 450 mg PO DAILY oxycodone 5 mg capsule 5 mg PO QHS celecoxib [Celebrex] 200 mg capsule 200 mg PO DAILY bisacodyl [Dulcolax (bisacodyl)] 5 mg tablet,delayed release (DR/EC) 5 mg PO ONCE Qty: 4 0RF Rx Instructions: Take per colonoscopy instructions provided by ordering providers office polyethylene glycol 3350 17 gram/dose powder 17 g PO ONCE Qty: 238 0RF Rx Instructions: Take per colonoscopy instructions provided by ordering providers office gabapentin 300 mg capsule 300 mg PO BID PRN Rx Instructions: Take one tablet at bedtime fluticasone propion-salmeterol [Advair Diskus] 1 EACH blister with device 1 ea Inhalation PRN simvastatin 40 MG tablet 40 mg PO DAILY Lumigan 5 ML drops 5 ml Ophthalmic HS [id number] 3 tab PO DAILY Fish Oil 1 cap PO DAILY Vitamin B100 1 tab PO DAILY clobetasol 60 GM ointment 60 gm Topical HS twice weekly PRNQty: 60 aspirin [Aspirin Childrens] 81 mg tablet,chewable 81 mg PO DAILY psyllium husk [Wal-Mucil Fiber] 0.52 gram capsule 2.08 g PO DAILY albuterol sulfate [Proventil HFA] 90 mcg/actuation HFA aerosol inhaler 2 puff inhalation QID PRN PRN magnesium oxide 400 mg magnesium tablet 400 mg PO DAILY duloxetine 30 mg capsule,delayed release(DR/EC) 30 mg PO DAILY Patient Comments: pt.states she didnt take today ,it was last 02/22/23 estradiol [Vagifem] 10 mcg tablet 10 mcg VG HS twice weekly PRNQty: 8 Rx Instructions: 1 tab PV HS twice weekly acetaminophen 500 mg capsule 500 mg PO Q6H PRN docusate sodium 100 mg capsule 100 mg PO DAILY omeprazole 20 mg capsule,delayed release(DR/EC) 20 mg PO DAILY diphenhydramine HCl [Benadryl Allergy] 25 mg tablet 25 mg PO TID PRN Claritin Liqui-Gel 10 mg capsule 10 mg PO DAILY Discontinued polyethylene glycol 3350 17 gram/dose powder 238 g PO ONCE Qty: 238 0RF Rx Instructions: For Colonoscopy bowel prep, as directed by office bisacodyl 5 mg tablet,delayed release (DR/EC) 5 mg PO ONCE Qty: 4 0RF Rx Instructions: Per Colonoscopy bowel prep instructions Discharge Instructions Instructions: Diverticulosis (GEN), Colorectal Polyps (GEN), Diverticulosis Diet (GEN) Additional Instructions: Tg, we were able to complete your colonoscopy today without any difficulty at all. I did find 2 polyps. I removed both of these completely. I will take a week or 2 for me to get the results of the pathology report, and once I have that information I will be in touch with the next recommendations. Incidentally, you also have some diverticulosis. These are small weak spots in the colon wall. They can become infected. When that happens, patients typically have pain on the left side of their abdomen, or lower across the middle. This is usually associated with fevers and feeling pretty sick. During those times, patient should be treated with antibiotics. I have attached some general information here regarding both colorectal polyps as well as diverticulosis. If you have any questions in the meantime, please do not hesitate to call. 1. If tolerated, consume a soft, low fiber diet for 1-2 days. 2[address] Do not drive, drink alcohol, operate machinery, make critical decisions, or do activities that require coordination or balance for 24 hours. 3. Because air was put into your colon during the procedure, expelling air from your rectum (passing gas or farting) is normal. 4. You may not have a bowel movement for 1-3 days because of the colonoscopy prep. This is normal. 5. Go directly to the emergency room if you notice any of the following: Develop chills (warm to touch), or if you have a thermometer and your temperature is above 101 Difficulty breathing or difficultly swallowing Persistent vomiting Severe abdominal pain, other than gas cramps Severe chest pain Black, tarry stools Any bleeding ? exceeding one tablespoon 6. Call your physician if the site where your intravenous was started becomes red, swollen, painful, and warm to touch. 7. Your physician has reviewed your pre-procedure medications. Please continue to take those medications as previously ordered. You will be given specific information/education regarding any changes to your medications before leaving. Activity:: Activity as Tolerated Diet:: As Tolerated Discharge Orders Discharge Orders: Discharge Order (Routine); Ordered 02/24/23 Ordered By: Dequan Pabon DS: Diagnosis Discharge Diagnosis (1) Screen for colon cancer: Status: Acute Asessment and Plan: I will follow-up on polypectomy results
--- NOTE | 2023-02-24 15:39 | W.COLOREPORT ---
Date of service: 02/25/23 Time of Service: 09:36 Colonoscopy Report Date of procedure: 02/25/23 Pre-op diagnosis general: Screening colonoscopy Post-op diagnosis procedure note: other (Diverticulosis, colon polyps) Procedure: Colonoscopy with polypectomy Surgeon: Dequan Pabon Anesthesia Type: General:No Airway Estimated blood loss (mL): 10 Pathology: other (0.25 cm polyp at 25 cm, 0.75 cm polyp at 125 cm) Complications: None Disposition: same day Indications: Tg is 77 years old with a personal history of sessile serrated adenomatoud polyps. She is here for her next screening colonoscopy Prep: Miralax/Dulcolax Procedure Start Time: 09:01 Procedure End Time: :25 Retraction Time: 10 Findings: Sigmoid diverticulosis, colon polyps at 25 cm and 125 cm Procedure Description: After the induction of monitored anesthetic care, and with the patient in left lateral decubitus position, I began by performing an external anorectal exam.? Perineum and skin were normal, as was the anal verge.? There were some external skin tags consistent with fibrosed external hemorrhoids.? Next, I performed a digital rectal exam.? I did not appreciate any abnormal findings.? Next, I advanced a colonoscope into the rectal vault.? I performed retroflexion.? This appeared normal.? Using insufflation, I then advanced the colonoscope beyond the rectal folds and into the sigmoid colon before advancing towards the cecum.? There is sigmoid diverticulosis. the quality of the prep was excellent.? The scope was noted to be in the cecum by identification of the ileocecal valve and appendiceal orifice.? I then began withdrawing the colonoscope using repeated irrigation as necessary for full evaluation of the colonic mucosa. Around 125 cm from the anal verge I identified a 0.75 cm polyp. ?It appeared sessile in character. ?I was able to remove this with a cold forcep polypectomy. ?I examined the site, and there was minimal bleeding. ?Once this was completed, I continued to withdraw the scope and examine the remainder of the colonic mucosa.? Around 25 cm from the anal verge was another 0.25 cm sessile polyp. I removed this with cold forceps. There was minimal bleeding here as well. Once the scope was withdrawn to the level of the rectum, great care was taken to examine portions of the rectal folds.? Finally, the scope was withdrawn and the patient was brought to the same-day surgery recovery unit as the anesthetic wore off. ?The findings and instructions were shared with the patient prior to discharge.
--- NOTE | 2023-02-25 05:14 | W.ANESPRE ---
General Info Date of Service Date Performed: 02/25/23 Height: 5 ft Weight: 68.492 kg Body Mass Index (BMI): 29.5 Surgical Procedure: Operation Date: 02/25/23 09:05 Proposed Procedure Side Surgeon manoj Pabon MD Meds Allergies and Home Medications Allergies Allergy/AdvReac Type Severity Reaction Status Date / Time brimonidine tartrate Allergy Mild Eye Verified 02/22/23 15:36 [From Alphagan P] Irritation/GI Upset Home Medication Medication Instructions Recorded [id number] 3 tab PO DAILY 04/15/13 Fish Oil 1 cap PO DAILY 04/15/13 Vitamin B100 1 tab PO DAILY 04/15/13 bimatoprost 0.01 % eye drops 5 ml ophthalmic (eye) HS 04/15/13 (Lumigan) fluticasone 250 mcg-salmeterol 50 1 ea inhalation PRN 04/15/13 mcg/dose blistr powdr for inhalation (Advair Diskus) simvastatin 40 mg tablet 40 mg PO DAILY 04/15/13 clobetasol 0.05 % topical ointment 60 gm topical HS twice weekly PRN 06/29/14 #60 grams lisinopril 10 mg tablet 10 mg PO DAILY 07/21/21 albuterol sulfate 90 mcg/actuation 2 puff inhalation QID PRN PRN 05/31/22 aerosol inhaler (Proventil HFA) aspirin 81 mg chewable tablet 81 mg PO DAILY 05/31/22 (Aspirin Childrens) cholecalciferol (vitamin D3) 25 25 mcg PO DAILY 05/31/22 mcg (1,000 unit) capsule duloxetine 30 mg capsule,delayed 30 mg PO DAILY 05/31/22 release estradiol 10 mcg vaginal tablet 10 mcg vaginal HS twice weekly PRN 05/31/22 (Vagifem) #8 tabs magnesium oxide 400 mg PO DAILY 05/31/22 oxycodone 5 mg capsule 5 mg PO QHS 05/31/22 psyllium husk 0.52 gram capsule 2.08 g PO DAILY 05/31/22 (Wal-Mucil Fiber) vitamin E (dl, acetate) 450 mg 450 mg PO DAILY 05/31/22 (1,000 unit) capsule gabapentin 300 mg capsule 300 mg PO BID PRN 06/15/22 acetaminophen 500 mg capsule 500 mg PO Q6H PRN 11/19/22 diphenhydramine HCl 25 mg tablet 25 mg PO TID PRN 11/19/22 (Benadryl Allergy) docusate sodium 100 mg capsule 100 mg PO DAILY 11/19/22 loratadine 10 mg capsule (Claritin 10 mg PO DAILY 11/19/22 Liqui-Gel) omeprazole 20 mg capsule,delayed 20 mg PO DAILY 11/19/22 release bisacodyl 5 mg tablet,delayed 5 mg PO ONCE #4 tabs 02/07/23 release (Dulcolax (bisacodyl)) celecoxib 200 mg capsule (Celebrex) 200 mg PO DAILY 02/07/23 polyethylene glycol 3350 17 17 g PO ONCE #238 grams 02/07/23 gram/dose oral powder Current Visit Medications: Current Medications Generic Name Dose Route Start Last Admin Trade Name Freq PRN Reason Stop Dose Admin Hyoscyamine Sulfate 0.125 mg 02/24/23 15:40 Hyoscyamine 0.125 Mg Sl/Oral/Chew SL 03/26/23 15:39 DIRECTED PRN Ringer's Solution 1,000 mls @ 80 mls/hr 02/25/23 06:00 IV 02/25/23 23:59 INFUSION [facility] IV Miscellaneous Supplies 1 each 02/25/23 06:00 Iv Access IV 02/25/23 23:59 DIRECTED [facility] Ondansetron HCl 4 mg 02/24/23 15:40 Ondansetron 4 Mg/2 Ml Vial IVP 03/26/23 15:39 Q4H PRN PRN Nausea / Vomiting Sodium Chloride 0 ml 02/25/23 06:00 Normal Saline Flush 10 Ml Syr IV 02/25/23 23:59 PRN PRN Sodium Chloride 0 ml 02/25/23 06:00 Normal Saline 10 Ml Vial IJ 02/25/23 23:59 DIRECTED PRN Sterile Water 0 ml 02/25/23 06:00 Water,Injection,Sterile 10 Ml Vial IJ 02/25/23 23:59 DIRECTED PRN PFSH Active Problems Active Problems: Problem Status Onset Code Screen for colon cancer Z12.11 Left knee DJD M17.12 Polyp at cervical os 03/28/15 N84.1 Status post total knee replacement, right 04/04/22 Z96.651 Hemarthrosis, right knee M25.061 Postoperative pain of right knee G89.18, M25.561 Cognitive changes R41.89 Medical History Medical History Serrated adenoma of colon Hyperlipidemia Vitamin D deficiency History of depression Atrophy of vagina H/O urinary frequency Seborrheic keratosis Abnormal findings on diagnostic imaging of breast Knee pain, bilateral Post-nasal drip Impaired fasting glucose Decreased hearing Urinary frequency Memory impairment Low back pain Osteoarthritis Osteoporosis Asthma Hypertension High cholesterol Glaucoma Lichen sclerosus et atrophicus (08/13/13) Surgical History Surgical History History of total knee arthroplasty History of carpal tunnel release of both wrists approx 2006 History of colonoscopy (~08/05/17) Tobacco Smoking/Tobacco Use Status: Never Alcohol Alcohol Intake: current Alcohol intake frequency: 0-2 drinks per day Alcohol type: wine and hard liquor Substance Use Substance use: Never Substance use type: does not use Vital Signs and Lab Results Vital Signs Most Recent Vital Signs in EMR: Temp Pulse Resp BP Pulse Ox 36.2 C L 86 16 138/71 100 02/25/23 08:14 02/25/23 08:14 02/25/23 08:14 02/25/23 08:14 02/25/23 08:14 Lab Results Blood Type / Crossmatch: No Data to Display Complete Blood Count: No Data to Display Complete Metabolic Panel: No Data to Display Liver Function Panel: No Data to Display Coagulation Panel: No Data to Display Cardiac Panel: No Data to Display Arterial Blood Gas: No Data to Display Venous Blood Gas: No Data to Display Pancreas Panel: No Data to Display Thyroid Panel: No Data to Display Infectious Disease: No Data to Display Blood Cultures: No Data to Display Toxicology Panel: No Data to Display Anesthesia Assessment and Plan Anesthesia History Personal History: No History of Anesthesia Complications Family History: No Family History of Anesthesia Complications Exercise Tolerance Exercise Tolerance: Metabolic Equivalents>4 Cardiac & Pulmonary Exam Cardiac Exam: Normal S1/S2 Heart Sounds Pulmonary Exam: Clear Bilateral Breath Sounds Implantable Cardiac Device Does patient have a Pacemaker or an ICD?: No Airway Exam Known Difficult Airway: No Mallampati Class: 1 Mouth Opening: Normal (> 3cm) Thyromental Distance: Less than 3 cm Neck Range of Motion: Full ROM Neck Circumference: Normal Teeth Condition: Normal Dentition ASA Classification ASA Score: ASA 2 Emergency Case?: No NPO Status NPO Status: NPO Clears >2 hours, Solids >8 hours Anesthesia Plan Resuscitation Status: Full Code Anesthesia Technique: General Anesthesia Airway Planned: Natural Airway Monitors Used: Standard Monitors Preoperative Comments:: 77 yo female for colo. Sig PMHx: HTN (lisinopril), asthma (albuterol), cogntive changes, depression, never smoker, occ EtOH. Previous Anes: - TKA, spinal, prop sedation, no issues.
[2023-02-25 08:14] VITALS: BP 138/71; PULSE 86; RESP 16; TEMP 36.2; O2SAT 100
[2023-02-25] MEDS: Lactated Ringers 1,000 ML 80 ML IV (08:23)
[2023-02-25 08:27] VITALS: BMI 29.5
--- NOTE | 2023-02-25 09:03 | BOWEL_PTH ---
PATIENT: Tg Shore LOC: [facility] U#:[id number] AGE/SX: 77/F ROOM: RE02/25/[address]: Dequan Pabon MD : 1945 BED: DIS: 02/25/2023 SPEC #: [id number] RECD: 02/25/23 12:28 STATUS: JAISON REQ #: [id number] MAMADOU: 02/25/23 09:[address]: Dequan Pabon DEPT: Surgical Specimen RECD BY: Edie Molina ENTERED: 02/25/23 12:28 SP TYPE: Bowel OTHR DR: Franny Herzog Tissues: 1 - BIOPSY BOWEL 2 - BIOPSY BOWEL Procedures: GROSS AND MICRO LEVEL 4 Comments: [id number]
[2023-02-25 09:29] VITALS: BP 121/61; PULSE 75; RESP 16; TEMP 36.1; O2SAT 94
--- NOTE | 2023-02-25 09:39 | W.ANESPOSTOP ---
Postoperative Evaluation Date, Time and Location Date Performed: 02/25/23 Time Performed: 09:40 Patient Location: Day Surgery Unit Vital Signs Most Recent Imported Vital Signs: Most Recent Vital Signs Temp Pulse Resp BP Pulse Ox 36.1 C L 75 16 121/61 94 02/25/23 09:29 02/25/23 09:29 02/25/23 09:29 02/25/23 09:29 02/25/23 09:29 Pain Score Most Recent Pain Score: Most Recent Pain Score Pain Level 0 02/25/23 09:29 Assessment Mental Status: Awake (Alert & Oriented to Patient Baseline) Airway and Respiratory Function: Patent airway with normal (patient baseline) respiratory exam Cardiovascular Function: Hemodynamically Stable Hydration Status: Adequately Hydrated Nausea & Vomiting: No Nausea or Vomiting Pain: Pt. Denies Any Pain Peripheral Nerve Block: Patient did not receive a nerve block
[2023-02-25 10:00] VITALS: BP 135/67; PULSE 63; RESP 17; TEMP 36.4; O2SAT 98
== END 2023-02-25 10:10 | disposition home or self-care (01) ==
LOC: SUR 07:32
PROVIDERS: PCP Nurse Practitioner Family; Visit Provider Surgery
PROC: 0DJD8ZZ Inspection of Lower Intestinal Tract, Via Natural or Artificial Opening Endoscopic (ICD-10-PCS; CPT 45378; principal; 2023-02-25 09:00)
DX: Z12.11 Encounter for screening for malignant neoplasm of colon (principal); I10 Essential (primary) hypertension; D12.5 Benign neoplasm of sigmoid colon; K57.10 Diverticulosis of small intestine without perforation or abscess without bleeding; D12.3 Benign neoplasm of transverse colon
CPT/HCPCS: 45380; 00123; 88305; J2001

== ENCOUNTER 2023-04-15 10:47 | Outpatient (CLI) | payer MEDICARE, SELFPAY ==
--- NOTE | 2023-04-15 09:00 | DI.RAD_ITS ---
Exam(s) XR KNEE RT 2V AP,LAT EXAM: XR KNEE RT 2V AP,LAT CLINICAL HISTORY: ANNUAL F/U R TKA. TECHNIQUE: 2D digital imaging was performed. Three views. COMPARISON: CR XR KNEE RT 1V from 04/13/2022 FINDINGS: BONES: No acute fracture is present. No bony destructive lesion is seen. JOINTS: There is been no change in the alignment of the total knee prosthesis. No joint effusion is seen. SOFT TISSUE: Normal. IMPRESSION: Stable total knee prosthesis. DATA REPOSITORY: RADIATION DOSE DELIVERED:
== END 2023-04-15 10:48 | disposition home or self-care (01) ==
LOC: DIORS 10:47
PROVIDERS: PCP Nurse Practitioner Family; Visit Provider Student in an Organized Health Care Education/Training Program
DX: Z96.651 Presence of right artificial knee joint (principal); Z47.1 Aftercare following joint replacement surgery; M70.51 Other bursitis of knee, right knee
CPT/HCPCS: 99213; 73560

== ENCOUNTER 2023-04-23 04:33 | Outpatient (CLI) | payer MEDICARE, SELFPAY ==
[2023-04-23 09:18] LABS: HCT 37.7 % (36.0-46.0); HGB 13.1 g/dL (11.2-15.7); MCH 32.4 pg (27.0-33.0); MCHC 34.7 % (32.0-36.0); MCV 93 fL (80-95); MPV 8.7 fL (8.0-11.0); Platelet Count 205 10^3/uL (130-400); RBC 4.04 10^6/uL (3.93-5.22); RDW 12.6 % (11.7-14.6); RDW-SD 43.1 fL; WBC 7.81 10^3/uL (4.4-10.8)
[2023-04-23 09:32] LABS: Hemoglobin A1C 5.1 % (<5.7)
[2023-04-23 10:10] LABS: Iron 85 ug/dL (50-170); Total Iron Binding Capacity 247 ug/dL (250-450); Transferrin Sat 34 % (15-50)
[2023-04-23 10:20] LABS: Ferritin 239 ng/mL (8-252); TSH 2.79 uIU/mL (0.36-3.74)
[2023-04-23 11:05] LABS: Vitamin D 25 Total 39.5 ng/mL (30-100)
[2023-04-23 12:48] LABS: Anion Gap 8.8 mmol/L (3-11); BUN 18 mg/dL (7-18); CO2 29.2 mmol/L (21.0-32.0); CREATININE 0.9 mg/dL (0.55-1.02); Calcium 9.2 mg/dL (8.5-10.1); Chloride 101 mmol/L (98-107); Estimated GFR 66.67 (mL/min/1.73m2); Glucose 117 mg/dL (74-106); Potassium 4.4 mmol/L (3.5-5.1); Sodium 139 mmol/L (136-145)
== END 2023-04-23 04:34 | disposition home or self-care (01) ==
LOC: LBO 04:34
PROVIDERS: PCP Nurse Practitioner Family; Visit Provider Nurse Practitioner Family
DX: Z00.00 Encounter for general adult medical examination without abnormal findings (principal); E55.9 Vitamin D deficiency, unspecified
CPT/HCPCS: 36415; 80048; 82306; 85027; 82728; 83036; 83540; 83550; 84443

== ENCOUNTER → 2023-11-13 08:25 | Outpatient (BNVA) | payer MEDICARE, SELFPAY | PROVIDERS: PCP Nurse Practitioner Family; Referring Provider Nurse Practitioner Family; Visit Provider Nurse Practitioner Adult Health | DX: R41.89 Other symptoms and signs involving cognitive functions and awareness (principal) | CPT/HCPCS: 99215 ==

== ENCOUNTER → 2023-11-29 00:09 | Outpatient (CLI) | payer MEDICARE, SELFPAY ==
--- NOTE | 2023-11-29 07:30 | DI.MRI_ITS ---
Exam(s) MR BRAIN WO EXAM: MR BRAIN WO CLINICAL HISTORY: memory changes,COGNITIVE IMPAIRMENT,R41.89 TECHNIQUE: Multiplanar multisequence MRI of the brain was performed. COMPARISON: No exams were available for comparison FINDINGS: VENTRICLES AND EXTRA AXIAL SPACES: Normal in size and morphology for the patient's age. MIDLINE SHIFT: None. CEREBRAL PARENCHYMA: No focus of restricted diffusion to suggest acute infarct. No space-occupying le yinka identified. Mild atrophy consistent with the patient's age. Mild scattered foci of high signal in the white matter consistent with sequela of chronic microvascular disease. HEMORRHAGE: None. BRAINSTEM/CEREBELLUM: Normal. VISUALIZED PARANASAL SINUSES/MASTOIDS:Clear. Vasculature: Normal flow void. PITUITARY GLAND: Unremarkable. ORBITS: Unremarkable. IMPRESSION: Unremarkable MRI of the brain. DATA REPOSITORY:
== END ==
PROVIDERS: PCP Nurse Practitioner Family; Visit Provider Nurse Practitioner Adult Health
DX: R41.89 Other symptoms and signs involving cognitive functions and awareness (principal)
CPT/HCPCS: 70551

== ENCOUNTER → 2023-12-25 09:02 | Outpatient (BNVA) | payer MEDICARE, SELFPAY | PROVIDERS: PCP Nurse Practitioner Family; Referring Provider Nurse Practitioner Family; Visit Provider Nurse Practitioner Adult Health | DX: G30.9 Alzheimer's disease, unspecified (principal); F02.80 Dementia in other diseases classified elsewhere, unspecified severity, without behavioral disturbance, psychotic disturbance, mood disturbance, and anxiety | CPT/HCPCS: 99213 ==

== ENCOUNTER → 2024-02-06 14:21 | Outpatient (BNVA) | payer MEDICARE, SELFPAY | PROVIDERS: PCP Nurse Practitioner Family; Referring Provider Nurse Practitioner Family; Visit Provider Nurse Practitioner Adult Health | DX: G30.9 Alzheimer's disease, unspecified (principal); F02.80 Dementia in other diseases classified elsewhere, unspecified severity, without behavioral disturbance, psychotic disturbance, mood disturbance, and anxiety | CPT/HCPCS: 99214 ==

== ENCOUNTER 2024-04-27 11:52 | Outpatient (REF) | payer MEDICARE, SELFPAY ==
[2024-04-27 15:00] LABS: Abs Immature Grans 0.03 10^3/uL (0.0-0.06); Absolute Basophil Count 0.03 10^3/uL (0.0-0.2); Absolute Eosinophil Count 0.08 10^3/uL (0.0-0.7); Absolute Lymphocyte Count 2.04 10^3/uL (1.2-3.4); Absolute Monocyte Count 0.59 10^3/uL (0.1-0.8); Absolute Neutrophil Count 4.48 10^3/uL (1.2-6.7); Basophils % 0.4 %; Eosinophils % 1.1 %; HGB 13.5 g/dL (11.2-15.7); Immature Grans % 0.4 %; Lymphocytes % 28.1 %; MCH 33.6 pg (27.0-33.0); MCHC 34.6 % (32.0-36.0); MCV 97 fL (80-95); MPV 9.4 fL (8.0-11.0); Monocytes % 8.1 %; Neutrophils % 61.9 %; Platelet Count 265 10^3/uL (130-400); RBC 4.02 10^6/uL (3.93-5.22); RDW 13.1 % (11.7-14.6); WBC 7.25 10^3/uL (4.4-10.8)
[2024-04-27 15:47] LABS: Iron 109 ug/dL (50-170); Total Iron Binding Capacity 273 ug/dL (250-450); Transferrin Sat 40 % (15-50)
[2024-04-27 16:05] LABS: ALT 22 U/L (14-59); AST 18 U/L (15-37); Albumin 4.3 g/dL (3.4-5.0); Alkaline Phosphatase 66 U/L (46-116); Anion Gap 10.8 mmol/L (3-11); BUN 16 mg/dL (7-18); Bilirubin, Total 0.79 mg/dL (0.2-1.0); CO2 28.2 mmol/L (21.0-32.0); CREATININE 0.9 mg/dL (0.55-1.02); Calcium 9.6 mg/dL (8.5-10.1); Calculated LDL 87 mg/dL (<100); Chloride 102 mmol/L (98-107); Cholesterol 207 mg/dL (<200); Estimated GFR 66.26 (mL/min/1.73m2); Ferritin 199 ng/mL (8-252); Glucose 107 mg/dL (74-106); HDL Cholesterol 43 mg/dL (40-60); Potassium 4.6 mmol/L (3.5-5.1); Sodium 141 mmol/L (136-145); Total Protein 7.8 g/dL (6.4-8.2); Triglyceride 389 mg/dL (<150)
== END 2024-04-27 11:53 | disposition home or self-care (01) ==
LOC: NCHCN 11:52
PROVIDERS: PCP Nurse Practitioner Family; Visit Provider Nurse Practitioner Family
DX: E78.5 Hyperlipidemia, unspecified (principal); D64.9 Anemia, unspecified; I10 Essential (primary) hypertension
CPT/HCPCS: 80053; 80061; 82728; 83540; 83550; 85025

== ENCOUNTER → 2025-01-13 13:56 | Outpatient (BNVA) | payer MEDICARE, SELFPAY | PROVIDERS: PCP Nurse Practitioner Family; Referring Provider Nurse Practitioner Family; Visit Provider Nurse Practitioner Adult Health | DX: G30.9 Alzheimer's disease, unspecified (principal); F02.80 Dementia in other diseases classified elsewhere, unspecified severity, without behavioral disturbance, psychotic disturbance, mood disturbance, and anxiety | CPT/HCPCS: 99215; G2212 ==

== ENCOUNTER 2025-01-21 14:44 | Outpatient (REF) | payer MEDICARE, SELFPAY ==
[2025-01-21 21:11] LABS: ALT 27 U/L (14-59); AST 18 U/L (15-37); Albumin 4.4 g/dL (3.4-5.0); Alkaline Phosphatase 59 U/L (46-116); Anion Gap 9.7 mmol/L (3-11); BUN 17 mg/dL (7-18); Bilirubin, Total 0.7 mg/dL (0.2-1.0); CO2 28.3 mmol/L (21.0-32.0); Calcium 10.5 mg/dL (8.5-10.1); Calculated LDL 70 mg/dL (<100); Chloride 102 mmol/L (98-107); Cholesterol 162 mg/dL (<200); Estimated GFR 89.02 (mL/min/1.73m2); Glucose 104 mg/dL (74-106); HDL Cholesterol 35 mg/dL (>or=50); Potassium 4.4 mmol/L (3.5-5.1); Sodium 140 mmol/L (136-145); Total Protein 7.6 g/dL (6.4-8.2); Triglyceride 287 mg/dL (<150)
== END 2025-01-21 14:45 | disposition home or self-care (01) ==
LOC: NCHCN 14:44
PROVIDERS: PCP Nurse Practitioner Family; Visit Provider Nurse Practitioner Family
DX: I10 Essential (primary) hypertension (principal)
CPT/HCPCS: 80053; 80061

== ENCOUNTER 2025-02-15 14:26 | Outpatient (CLI) | payer MEDICARE, SELFPAY ==
[2025-02-15 18:38] LABS: TSH 2.29 uIU/mL (0.36-3.74); Vitamin B12 765 pg/mL (193-986)
== END 2025-02-15 14:27 | disposition home or self-care (01) ==
LOC: LBO 14:27
PROVIDERS: PCP Nurse Practitioner Family; Visit Provider Nurse Practitioner Family
DX: G30.9 Alzheimer's disease, unspecified (principal)
CPT/HCPCS: 36415; 82607; 84439; 84443

== ENCOUNTER → 2025-03-16 00:45 | Outpatient (CLI) | payer MEDICARE, SELFPAY ==
--- NOTE | 2025-03-16 | DI.DEXA_ITS ---
Exam(s) XR DEXA BONE DENSITY W/WO GORDY EXAM: XR DEXA BONE DENSITY W/WO GORDY CLINICAL HISTORY: SENILE OSTEOPOROSIS, M81.0 TECHNIQUE: COMPARISON: CR XR DEXA BONE DENSITY W/WO GORDY from 10/05/2021 FINDINGS: Lateral Spine Image: Unremarkable. No compression deformities identified. Left hip: Total T-Score: -0.4. This compares to -0.2 on the prior examination. Total Z-Score: 1.5 T- and Z-scores: Within normal limits. There is no evidence of osteoporosis. Lumbar Spine: Total T-Score: 0.1. This compares to 0.3 on the prior examination. Total Z-Score: 2.7 T- and Z-scores: Within normal limits. IMPRESSION: There is no evidence of osteoporosis in the left hip or lumbar spine.
== END ==
LOC: DI 00:45
PROVIDERS: PCP Nurse Practitioner Family; Visit Provider Nurse Practitioner Family
DX: M81.0 Age-related osteoporosis without current pathological fracture (principal)
CPT/HCPCS: 77080